=== PATIENT | female | born 1940 | race Caucasian/White ===

== ENCOUNTER 2017-05-21 05:12 | Inpatient (IN) | payer OTHER ==
[2017-04-19 13:52] VITALS: BMI 41.0
--- NOTE | 2017-04-19 14:27 | PAT Medication Instructions ---
Service Date Apr 19, 2017. Current Home Medication List Aspirin (Aspirin Ec), 81 MG PO QAM Glimepiride (Glimepiride), 2 TAB PO QDB Hydrochlorothiazide (Hctz), 1 TAB PO DAILY PRN for fluid n legs Lisinopril (Zestril), 10 MG PO QAM Metformin Hcl (Glucophage), 1,000 MG PO BID Naproxen (Aleve), 220 MG PO DAILY PRN for Pain Medication Instructions For Your Scheduled Surgery - Check with surgeon for instructions: Naproxen (Aleve), 220 MG PO DAILY PRN for Pain - Hold the following medications 48 hours prior to surgery: Metformin Hcl (Glucophage), 1,000 MG PO BID - Hold the following medications the morning of surgery: Hydrochlorothiazide (Hctz), 1 TAB PO DAILY PRN for fluid n legs Lisinopril (Zestril), 10 MG PO QAM Glimepiride (Glimepiride), 2 TAB PO QDB - Take the following medications the morning of surgery with a sip of water: Aspirin (Aspirin Ec), 81 MG PO QAM - Take the following medications as scheduled the night before surgery: Hydrochlorothiazide (Hctz), 1 TAB PO DAILY PRN for fluid n legs (if needed) If you have any questions please call us at [phone] or [phone] or [phone]
[2017-04-19 14:56] LABS: BASO % 0.4 %; BASO ABS # 0.02 K/uL (0-0.2); COMPLETE YES; EOS % 3.3 %; HEMATOCRIT 37.4 % (37-47); IG% 0.2 %; LYMPH ABS # 1.52 K/uL (1.2-3.4); MEAN CORPUSCULAR HEMOGLOBIN 30.7 pg (25-34); MEAN CORPUSCULAR HGB CONC 33.7 g/dl (32-36); MONO % 12.5 %; NEUT % 55.6 %; PLATELET COUNT 172 K/uL (130-400); RED BLOOD COUNT 4.11 M/uL (4.2-5.4); WHITE BLOOD COUNT 5.43 K/uL (4.8-10.8)
[2017-04-19 15:03] LABS: URINE APPEARANCE CLOUDY (CLEAR); URINE BILIRUBIN NEG (NEG); URINE COLOR YELLOW; URINE EPITHELIAL CELL AUTO >30 /lpf (0-5); URINE NITRITE POS (NEG); URINE PH 5.5 (4.5-7.5); URINE SPECIFIC GRAVITY 1.016 (1.000-1.030); UROBILINOGEN NEG (NEG); ZZUR CULT IF INDIC CLEAN CATCH YES
[2017-04-19 15:04] LABS: PROTHROMBIN TIME (PATIENT) 10.9 SECONDS (9.0-12.0)
[2017-04-19 15:12] LABS: MANUAL MICROSCOPIC REQUIRED? NO; REVIEW REQ? NO
[2017-04-19 16:07] LABS: BUN/CREATININE RATIO 15.6 (10-20); CALCIUM 9.3 mg/dl (8.5-10.1); CREATININE 0.93 mg/dl (0.60-1.20); POTASSIUM 4.3 mmol/L (3.5-5.1)
--- NOTE | 2017-04-19 17:46 | DIAGNOSTIC IMAGING REPORT ---
CHEST 2 VIEWS ROUTINE CLINICAL HISTORY: 76 years-old Female presenting with PAT. TECHNIQUE: PA and lateral views of the chest were obtained. COMPARISON: None. FINDINGS: Atherosclerosis of aortic arch. Cardiac silhouette normal in size. Lungs and pleural spaces clear. Osseous structures normal. Hyperdense material partially visualized in the abdomen, possibly ingested material. IMPRESSION: 1. No acute cardiopulmonary disease. Electronically signed by: Marty Juárez M.D. 04/19/2017 5:45 PM Dictated Date/Time: 04/19/2017 5:44 PM
[2017-04-20 08:10] LABS: ESTIMATED AVERAGE GLUCOSE 166 mg/dl; HA1C FLAG Normal (Normal)
--- NOTE | 2017-05-20 08:59 | HISTORY & PHYSICAL EXAMINATION ---
DATE OF ADMISSION: 05/21/2017 CHIEF COMPLAINT: Left knee pain. HISTORY OF PRESENT ILLNESS: The patient is a 76-year-old female who presents to the office with left knee pain. She states that the symptoms have been chronic and nontraumatic in nature. They occur constantly and she describes the pain as aching, sharp and throbbing. He has tried cortisone injections, nonsteroidal anti-inflammatories and physical therapy with no relief. She would like to proceed with a left total knee arthroplasty. PAST MEDICAL HISTORY: Significant for hypertension, hypercholesterolemia, eno-jywcprt-mvlautblb diabetes mellitus and osteoarthritis. PAST SURGICAL HISTORY: Right carpal tunnel release, hysterectomy, and tonsillectomy. SOCIAL HISTORY: She denies alcohol. She denies smoking or tobacco use. She denies IV or illegal drug use. She lives in a 1-story house and she is currently retired. FAMILY HISTORY: Mom and brother have a history of heart disease. ALLERGIES: STATINS, SHE GETS MUSCLE ACHES AND HIVES. MEDICATIONS: Metformin 1000 mg 1 tab twice a day, lisinopril 10 mg 1 tablet daily, glimepiride 4 mg 2 tablets with breakfast. REVIEW OF SYSTEMS: She denies headaches, fevers, chills, double vision, blurry vision, sore throat, cough, chest pain, nausea, vomiting, diarrhea, constipation, numbness, tingling, tired urinary difficulties, thoughts to harm herself or harm others or depression. She is positive for joint pain and joint stiffness of the left knee. OBJECTIVE: GENERAL APPEARANCE: The patient is a 76-year-old female sitting in no acute distress. She is well dressed, well nourished. She is awake, alert, oriented x3. VITAL SIGNS: She is 4 feet 11 inches tall, 194 pounds, blood pressure 120/69. HEENT: Normocephalic, atraumatic. Extraocular movements are intact. PERRLA. Mucosa was moist. No septal deviation. NECK: Supple with no lymphadenopathy, no JVD, no thyromegaly. HEART: Systolic murmur is appreciated in the aortic position. LUNGS: Clear to auscultation. No wheezing or rhonchi. ABDOMEN: Soft, nontender, nondistended. Normal bowel sounds, no hepatosplenomegaly. EXTREMITIES: Paying particular attention to the left lower extremity, she is able to actively extend to 0 degrees and flex to 90 degrees of the left knee joint. Her ligaments are intact. She has anterior medial joint pain. NEUROLOGIC: Cranial nerves II-XII were intact. Pulses were compared bilaterally and were equal. IMPRESSION: Primary osteoarthritis of the left knee. PLAN: The patient is scheduled for a left total knee arthroplasty. She has failed cortisone injections, nonsteroidal anti-inflammatories and physical therapy. This affects her activities of daily living and she would like to proceed with a left total knee arthroplasty. Risks and benefits to surgery were discussed that included but not limited to infection, DVT, pain, stiffness, need for revision surgeries, damage to blood vessels, damage to nerves, PE, and anesthesia risks were all discussed with the patient and she wishes to proceed. All questions were answered to her satisfaction. DVT prophylaxis will be aspirin 81 mg b.i.d. Discharge, she would like to go home with home health. MARILUZ
[~2017-05-21] VITALS: Ht 147.3 cm; Wt 89.0 kg
[2017-05-21] VITALS (10 sets, daily range): BP systolic 90–108; BP diastolic 51–68; PULSE 57–79; TEMP 36.4–36.6; O2SAT 92–97; Ht 147.3 cm; Wt 89.0 kg
[~2017-05-21 05:12] MED LIST: ASPI81TA28 PO; GLIM4TAB2 PO; HYDR25TA4 PO; LISI-461 PO; METF-384 PO; NAPR1TAB9 PO
[2017-05-21] MEDS ORDERED: CeleBREX 200 MG CAP PO SCH (06:00)
[2017-05-21] MEDS ORDERED: GABAPENTIN 300 MG CAP PO SCH (06:00)
[2017-05-21] MEDS: TRANEXAMIC ACID INJ 1,000 MG in SODIUM CHLORIDE 0.9% 100ML 100 ML IV SCH ×2 (06:00→06:30)
[2017-05-21] MEDS ORDERED: OXYCODONE HCL 10 MG TABCR (OXYCONTIN) PO SCH (06:00)
[2017-05-21] MEDS ORDERED: CEFAZOLIN 2000 MG/60 ML D5W IV SCH (06:00)
[2017-05-21] MEDS ORDERED: LACTATED RINGER'S 1000ML IV SCH (06:00)
[2017-05-21] MEDS ORDERED: CEFAZOLIN 2000 MG/60 ML D5W 60 ML IV SCH (06:00)
[2017-05-21] MEDS ORDERED: LACTATED RINGER'S 1000ML 1,000 ML IV SCH (06:00)
[2017-05-21] MEDS ORDERED: DEXAMETHASONE 4 MG TAB PO SCH (06:00)
[2017-05-21] MEDS ORDERED: ACETAMINOPHEN 500 MG TAB PO SCH (06:00)
[2017-05-21] MEDS ORDERED: LACTATED RINGER'S 1000ML 500 ML IV ONE (06:00)
[2017-05-21] MEDS ORDERED: ROPIVACAINE 5MG/ML 30 ML 150 MG, BUPIVACAINE/EPINEPHR 0.5% MPF 30 ML, KETOROLAC TROMETH... INFIL SCH ×7 (06:00)
[2017-05-21] MEDS ORDERED: METOCLOPRAMIDE HCL 10 MG TAB PO SCH (06:00)
[2017-05-21] MEDS ORDERED: FAMOTIDINE 20 MG TAB PO SCH (06:00)
[2017-05-21] MEDS ORDERED: BUPIVACAINE 0.5 % 5 MG/1 ML PF 10ML VIAL ONE (06:24)
[2017-05-21] MEDS ORDERED: BUPIVACAINE 0.25% 30 ML VIAL ONE (06:24)
[2017-05-21] MEDS ORDERED: ORTHO JOINT ANESTHETIC ONE (06:30)
[2017-05-21] MEDS ORDERED: BACITRACIN 50000 UNIT VIAL ONE (06:30)
[2017-05-21] MEDS ORDERED: POVIDONE-IODINE OP SOLN 30 ML BTL ONE (06:30)
[2017-05-21] MEDS ORDERED: MIDAZOLAM HCL 1 MG/ML 2ML VIAL ONE (06:48)
--- NOTE | 2017-05-21 06:57 | History & Physical Bridge Note ---
H&P Re-Evaluation Bridge Note: I have examined the patient, reviewed the History & Physical and in the interval since the performance of the History & Physical I have noted the following changes of clinical significance: No changes noted
[2017-05-21] MEDS ORDERED: CEFAZOLIN IV 2,000 MG/60 ML D5W IV ONE (06:58)
[2017-05-21] MEDS ORDERED: ACETAMINOPHEN 500 MG TAB PO ONE (06:58)
[2017-05-21] MEDS ORDERED: CeleBREX 200 MG CAP ONE (06:58)
[2017-05-21] MEDS ORDERED: DEXAMETHASONE 4 MG TAB ONE (06:59)
[2017-05-21] MEDS ORDERED: OXYCODONE HCL 10 MG TABCR (OXYCONTIN) PO ONE (06:59)
[2017-05-21] MEDS ORDERED: METOCLOPRAMIDE HCL 10 MG TAB PO ONE (07:00)
[2017-05-21] MEDS ORDERED: GABAPENTIN 300 MG CAP PO ONE (07:00)
[2017-05-21] MEDS ORDERED: FAMOTIDINE 20 MG TAB ONE (07:00)
[2017-05-21] MEDS ORDERED: SODIUM CHLORIDE 0.9% INJ 10 ML VIAL ONE ×2 (07:37→07:48)
[2017-05-21] MEDS ORDERED: LIDOCAINE HCL 2% 2 ML VIAL (20MG/ML) ONE (07:37)
[2017-05-21] MEDS ORDERED: PROPOFOL IV EMULSION 10 MG/ML 20 ML VIAL IV ONE ×2 (07:37→08:24)
[2017-05-21] MEDS ORDERED: CEFAZOLIN SOD 1 GM VIAL ONE (07:37)
[2017-05-21] MEDS ORDERED: KETAMINE HCL INJ 50 MG/ML 10 ML VIAL ONE (07:46)
[2017-05-21] MEDS ORDERED: PHENYLEPHRINE 100MCG/ML 5ML SYR ONE ×2 (07:48→08:41)
[2017-05-21] MEDS ORDERED: GLYCOPYRROLATE INJ 0.2 MG/ML VIAL ONE (07:49)
[2017-05-21] MEDS ORDERED: ATROPINE SULFATE 0.1 MG/ML 5ML SYR IV PRN (08:45)
[2017-05-21] MEDS ORDERED: PHENYLEPHRINE 100MCG/ML 5ML SYR IV PRN (08:45)
[2017-05-21] MEDS ORDERED: ONDANSETRON INJ 2 MG/ML 2 ML VIAL IV PRN ×2 (08:45→09:30)
[2017-05-21] MEDS ORDERED: KETOROLAC TROMETHAMINE 15 MG/ML VIAL IV. PRN (08:45)
[2017-05-21] MEDS ORDERED: EpHEDrine SULFATE INJ 50 MG/ML AMP IV PRN (08:45)
[2017-05-21] MEDS ORDERED: HYDROmorphone INJ 1 MG/ML SYR IV PRN (08:45)
[2017-05-21] MEDS ORDERED: HYDROCHLOROTHIAZIDE 25 MG TAB PO PRN (09:30)
[2017-05-21] MEDS ORDERED: SOD PHOSPHATE/SOD BIPHOSPHATE ENEMA 132 ML BTL PR PRN (09:30)
[2017-05-21] MEDS ORDERED: BISACODYL 10 MG SUPP PR PRN (09:30)
[2017-05-21] MEDS ORDERED: ZOLPIDEM TARTRATE 5 MG TAB PO PRN (09:30)
[2017-05-21] MEDS ORDERED: MoRPHine SULFATE 2 MG/ML CARP IV PRN (09:30)
[2017-05-21] MEDS ORDERED: ALUMINUM/MAGNESIUM/SIMETH (MAALOX MAX) 30 ML UDC PO PRN (09:30)
[2017-05-21] MEDS ORDERED: MAGNESIUM HYDROXIDE SUSP 30 ML UDC PO PRN (09:30)
--- NOTE | 2017-05-21 10:46 | DIAGNOSTIC IMAGING REPORT ---
LEFT KNEE 2 VIEWS History: Left total knee arthroplasty. Degenerative arthritis. Postop. FINDINGS: The patient is status post a left total knee arthroplasty. The hardware is intact. No fracture or dislocation. Skin irena and surgical drains are in place. IMPRESSION: Left total knee arthroplasty. No evidence for hardware complication. Electronically signed by: Madhav Michael M.D. 05/21/2017 10:45 AM Dictated Date/Time: 05/21/2017 10:44 AM
--- NOTE | 2017-05-21 10:51 | [facility] Operative Report ---
Operative Report Operative Date May 21, 2017. Pre-Operative Diagnosis Primary osteoarthritis of the left knee Post-Operative Diagnosis Primary osteoarthritis of the left knee Procedure(s) Performed Left Total Knee Arthroplasty, Cemented Surgeon Dr. Marty Pina Assembly Lead Person Surgeon(s) Julius Piña PA-C Estimated Blood Loss 20ml Findings As above Specimens A: Left knee bone and tissue Drains 2 Hemovac Anesthesia spinal Complication(s) None Disposition Recovery Room / PACU Indications 76-year-old female with long-standing degenerative joint disease left knee. She 's fill conservative measures clean injection anti-inflammatories and rehabilitation. She is hdxe-ro-[id number] medial compartment. She wishes to proceed with left total knee arthroplasty. Description of Procedure Risks benefits and alternatives of surgery including but not limited to infection, DVT, pain, stiffness, need for surgery, damage to blood vessels, damage to nerves or risks of anesthesia were discussed with the patient and they wished to proceed. The patient was identified and the laterality was confirmed and marked. They received a preoperative antibiotic as well as a spinal anesthetic and an abductor canal block. A well-padded tourniquet was applied and then the limb was prepped and draped in standard manner with ChloraPrep. The limb was exsanguinated and the tourniquet was inflated. I made a standard anterior incision. I sharply incised the skin then utilized Bovie electrocautery as well as the aqua mantis to achieve hemostasis. I made a medial parapatellar arthrotomy immobilized the patella laterally. I then excised the anterior horns of the medial and lateral meniscus as well as the infrapatellar fat pad. I elevated a portion of the MCL off of the tibia. I then pinned into place a patient-matched distal femoral cutting guide and made my distal femoral resection. I then pinned into place the 5 in 1 femoral cutting guide. I made my anterior, posterior and chamfer cuts. I then excised the cruciates and the remaining portions of the menisci. I then pinned into place a patient- matched tibial cutting guide and made my tibial resection. I then pinned into place the tibial plate a utilizing alignment remedios to confirm rotation. I then cut for the post. Utilizing a lamina harness worker and I then removed posterior osteophytes off the femur. I then placed a trial femur into position and cut for the trochlear component. I then sequentially trialed to size the polyethylene until there was good soft tissue balancing and range of motion. I then prepared the patella with a freehand cut utilizing sagittal saw. I sized and drilled for the patella. There was good tracking to the patella no lateral release was needed. All the trial components were removed. The deep tissues were anesthetized with an ortho mix solution. Then with Simplex HV with gentamicin cement, I cemented my definitive components. Definitive components, [employer] 2: Femur 3 Tibia 2 Poly 10 Patella 29 oval A betadine soak was performed. A deep drain was placed. The arthrotomy was closed with interrupted #1 Vicryl suture subcutaneous tissue was closed with interrupted 2-0 Vicryl suture. The skin was closed with with irena. A Silverlon was placed. Sterile dressings were applied. All needle and sponge counts were correct at the end of the procedure patient was transferred to the PACU in stable condition without apparent complication. The PA-C was necessary for assistance with procedure for assistance in positioning, prepping, draping, retraction and closure. I attest to the content of the Intraoperative Record and any orders documented therein. Any exceptions are noted below.
--- NOTE | 2017-05-21 11:16 | Anesthesiology Progress Note ---
Anesthesia Post Op Note Date & Time May 21, 2017 at 11:16 Vital Signs Pain Intensity: 0.0 Vital Signs Past 12 Hours Date Time Temp Pulse Resp B/P (MAP) Pulse Ox O2 Delivery O2 Flow Rate FiO2 05/21/17 11:02 95 Nasal Cannula 2.0 05/21/17 10:30 36.4 69 16 95/60 (72) 95 Nasal Cannula 2.0 05/21/17 10:30 95 Nasal Cannula 2.0 05/21/17 10:20 36.3 73 16 99/55 94 Nasal Cannula 2 05/21/17 10:10 36.3 20 93/60 94 Nasal Cannula 2 05/21/17 09:57 80 17 05/21/17 09:57 80 17 95 05/21/17 09:56 102/54 05/21/17 09:52 71 15 05/21/17 09:52 70 15 97 05/21/17 09:51 76 14 05/21/17 09:51 78 14 96/56 94 05/21/17 09:46 81 18 05/21/17 09:46 79 18 98/61 90 05/21/17 09:41 82 24 05/21/17 09:41 81 24 104/58 90 05/21/17 09:36 79 22 90/44 92 05/21/17 09:36 80 22 05/21/17 09:32 94/54 05/21/17 09:31 82 16 05/21/17 09:31 36.0 82 20 94/54 (65) 96 Room Air 05/21/17 09:31 82 16 96 05/21/17 05:41 36.5 77 18 108/68 94 Room Air Notes Mental Status: alert / awake / arousable, participated in evaluation Pt Amnestic to Procedure: Yes Nausea / Vomiting: adequately controlled Pain: adequately controlled Airway Patency, RR, SpO2: stable & adequate BP & HR: stable & adequate Hydration State: stable & adequate Anesthetic Complications: no major complications apparent
[2017-05-21] MEDS ORDERED: D5W AND 1/2NSS + 20MEQ KCL 1,000 ML IV SCH (11:45)
[2017-05-21] MEDS ORDERED: INFLUENZA ADMINISTRATION CHARGE ONE (12:15)
[2017-05-21] MEDS ORDERED: INFLUENZA VACCINE HIGH DOSE 65+ 0.5 ML SYR IM. ONE (12:15)
[2017-05-21] MEDS: FERROUS GLUCONATE 324 MG TAB PO SCH ×2 (12:48→19:35)
[2017-05-21] MEDS: ACETAMINOPHEN 500 MG TAB PO SCH ×2 (13:15→21:43)
[2017-05-21] MEDS ORDERED: PHARMACY GLYCEMIC MGMT CONSULT SCH (13:17)
--- NOTE | 2017-05-21 13:47 | Pharmacy Progress Note ---
Glycemic Control Intl Consult Date of Service May 21, 2017. Scope Glycemic Pharmacist consulted by Roge Dean on 05/21/17 for glycemic control and to write orders per [facility] inpatient glycemic control protocol Objective Weight (Kilograms): 89.000 Accuchecks BSG (last 24hrs): Test 05/21/17 05:41 05/21/17 09:38 05/21/17 12:13 Bedside Glucose 147 mg/dl (70-90) 142 mg/dl (70-90) 227 mg/dl (70-90) Recent Pertinent Medications Outpatient Anti-diabetic Regimen: * Glimepiride 8mg PO daily * Metformin 1g PO BID with meals * A1c = 7.4 % 04/19/17 Risk Factors for Insulin Resistance: * Steroids: Dexamethasone 8mg PO x1 today preop * Infection: Ancef pre and postop * IVF: Ancef mixed in dextrose * Recent Surgery: S/p TKA * Diet: Type 2 DM Assessment & Plan ASSESSMENT: * 76 year old female type 2 diabetic, A1c 7.4% . Pt received dose of dexamethasone po pre op, causing hyperglycemia. * Pt is maintained on oral antidiabetic agents as an outpatient * Oral agents are not recommended for inpatient use d/t drug interactions, changing PO intake, and difficulty titrating for acute hyper/hypoglycemia. ADA recommends re-initiating outpatient oral agents 1-2 days prior to discharge if/ when appropriate if they were held on admission. * Will hold oral agents for today and utilize SQ basal bolus insulin regimen which is the recommended regimen for inpatient glycemic control. * Will initiate weight based insulin dosing with a one time dose of Lantus and stress of 3 now * May give additional Lantus dose tomorrow morning based on BSG trends * Start CF and CR with stress of 3, and discontinue CR once orals start tomorrow * ADA & AACE recommend a goal blood sugar range 140-180 mg/dl for the majority of critically ill & non-critically ill patients. However, more stringent targets may be selected in individual cases. Will utilize more stringent goal of 110-140mg/dl based on patient age & comorbidities. Additionally, tighter glycemic control is warranted to facilitate wound/infection healing. PLAN FOR INPATIENT GLYCEMIC CONTROL: * Holding outpatient oral diabetes medications * Resume tomorrow morning (POD#1) * Basal insulin with LANTUS 44 units SQ x 1 dose now * Correctional Insulin with NOVOLOG per scale ACHS or Q6hrs while NPO and at 0000 and 0400 overnight * Goal Range: Low 110 mg/dL - High 140 mg/dL * Correction Factor: 20 mg/dL/unit * Nutritional / Prandial insulin per carb ratio of 1 unit per 6 grams CHO consumed * Please note that the plan above was derived based on current level of insulin resistance and hospital stress. These recommendations are appropriate for inpatient admission only. Plan of care upon discharge will need to be reassessed to avoid potential outpatient hypo/hyperglycemia. Thank you.
[2017-05-21] MEDS ORDERED: LANTUS PER UNIT CHARGE SQ ONE (14:00)
[2017-05-21] MEDS: SODIUM CHLOR 0.45% + 20MEQ KCL 1,000 ML IV SCH ×2 (14:44→23:58)
[2017-05-21] MEDS: INSULIN ASPART 100 UNITS/ML 3 ML PEN SC SCH ×3 (14:45→21:47)
[2017-05-21] MEDS: CEFAZOLIN IV 2,000 MG in DEXTROSE 5% 50ML 50 ML IV SCH (15:31)
[2017-05-21] MEDS: ASPIRIN 81 MG ECTAB PO SCH (21:42)
[2017-05-21] MEDS: SENNA 8.6 MG TAB PO SCH (21:42)
[2017-05-21] MEDS: CeleBREX 200 MG CAP PO SCH (21:42)
[2017-05-21] MEDS: DOCUSATE SODIUM 100 MG CAP PO SCH (21:42)
[2017-05-22] MEDS: INSULIN ASPART 100 UNITS/ML 3 ML PEN SC SCH ×6 (00:06→20:49)
[2017-05-22] MEDS: CEFAZOLIN IV 2,000 MG in DEXTROSE 5% 50ML 50 ML IV SCH (00:08)
[2017-05-22 04:04] VITALS: BP 100/63; PULSE 63; TEMP 36.5; O2SAT 96
[2017-05-22] MEDS: ACETAMINOPHEN 500 MG TAB PO SCH ×3 (05:54→20:45)
[2017-05-22 06:57] LABS: HEMATOCRIT 32.9 % (37-47); MEAN CELL VOLUME 89.4 fL (80-100); MEAN CORPUSCULAR HGB CONC 34.7 g/dl (32-36); MEAN PLATELET VOLUME 10.3 fL (7.4-10.4); PLATELET COUNT 137 K/uL (130-400); RED BLOOD COUNT 3.68 M/uL (4.2-5.4); WHITE BLOOD COUNT 10.39 K/uL (4.8-10.8)
[2017-05-22 07:10] LABS: INR 1.1 (0.9-1.1); PROTHROMBIN TIME (PATIENT) 11.7 SECONDS (9.0-12.0)
[2017-05-22 07:39] LABS: BUN/CREATININE RATIO 22.7 (10-20); CALCIUM 8.9 mg/dl (8.5-10.1); CREATININE 0.96 mg/dl (0.60-1.20); POTASSIUM 4.1 mmol/L (3.5-5.1)
[2017-05-22 07:45] VITALS: BP 123/64; PULSE 74; TEMP 36.3; O2SAT 96
--- NOTE | 2017-05-22 08:24 | Orthopedic Progress Note ---
Orthopedic Progress Note Date of Service May 22, 2017. Subjective Post OP Day: 1 Reports: feeling well, Denies: chest pain, SOB, nausea / vomiting, light headedness, calf pain Objective calves soft nontender, N/V intact, dressing C/D/I, A&O x3, toes mobile, hemovac drainage (60/100cc) Date Time Temp Pulse Resp B/P (MAP) Pulse Ox O2 Delivery O2 Flow Rate FiO2 05/22/17 07:45 36.3 74 16 123/64 (83) 96 Room Air 05/22/17 07:20 Room Air 05/22/17 04:04 36.5 63 16 100/63 (75) 96 Room Air 05/22/17 00:10 Room Air 05/21/17 23:21 36.4 58 16 103/63 (76) 95 Room Air 05/21/17 19:16 36.4 57 17 90/53 (65) 92 Room Air 05/21/17 15:30 93 Room Air 05/21/17 15:16 36.4 62 16 92/55 (67) 95 Nasal Cannula 2.0 05/21/17 13:30 36.6 61 17 91/58 (69) 97 Nasal Cannula 2.0 05/21/17 12:30 36.4 76 16 93/51 (65) 97 Nasal Cannula 2.0 05/21/17 11:32 61 16 101/66 (78) 97 Nasal Cannula 2.0 05/21/17 11:02 95 Nasal Cannula 2.0 05/21/17 11:00 79 16 97/60 (72) 95 Nasal Cannula 2.0 05/21/17 10:30 36.4 69 16 95/60 (72) 95 Nasal Cannula 2.0 05/21/17 10:30 95 Nasal Cannula 2.0 05/21/17 10:20 36.3 73 16 99/55 94 Nasal Cannula 2 05/21/17 10:10 36.3 20 93/60 94 Nasal Cannula 2 05/21/17 09:57 80 17 05/21/17 09:57 80 17 95 05/21/17 09:56 102/54 05/21/17 09:52 71 15 05/21/17 09:52 70 15 97 05/21/17 09:51 76 14 05/21/17 09:51 78 14 96/56 94 05/21/17 09:46 81 18 05/21/17 09:46 79 18 98/61 90 05/21/17 09:41 82 24 05/21/17 09:41 81 24 104/58 90 05/21/17 09:36 79 22 90/44 92 05/21/17 09:36 80 22 05/21/17 09:32 94/54 05/21/17 09:31 82 16 05/21/17 09:31 36.0 82 20 94/54 (65) 96 Room Air 05/21/17 09:31 82 16 96 Laboratory Results 24 Hours: Test 05/22/17 06:29 Hematocrit 32.9 % Hemoglobin 11.4 g/dL Prothromb Time International Ratio 1.1 Prothrombin Time 11.7 SECONDS Assessment & Plan Assessment: POD#1 SP LEFT TKA Plan: PT/PT DVT PROPH- ASA 81MG PAIN MANAGEMENT- TYLENOL, CELEBREX, ANNETTE DC PLANNING- PATIENT DEBATING BETWEEN HOME PT AND [facility]. WILL SEE HOW SHE DOES TODAY AND HOPEFULLY DECIDE. COULD POTENTIALLY BE DISCHARGED LATER TODAY.
--- NOTE | 2017-05-22 08:28 | Discharge Instructions ---
Discharge Instructions Date of Service May 22, 2017. Admission Reason for Admission: Osteoarthritis Left Knee Discharge Discharge Diagnosis / Problem: SP LEFT TKA Discharge Goals Goal(s): Decrease discomfort, Improve function, Increase independence Activity Recommendations Activity Limitations: per Instructions/Follow-up section . Instructions / Follow-Up Instructions / Follow-Up ACTIVITY RECOMMENDATIONS: SELF CARE INSTRUCTIONS AFTER TOTAL KNEE REPLACEMENT A. You may need to continue a physical therapy program after discharge from the hospital. There are several options available to you. Your doctor will assist you in selecting the best one for you. 1. An out-patient facility 2 to 3 times a week for therapy or home therapy. 2. Continue working on all exercises taught to you in the hospital. Your goals should be to increase bending of your knee to 90 degrees and beyond and to fully straighten your knee. B. You may progress at your own pace from walking with a walker or crutches to a cane; then to no assistive devices. C. Make walking a part of your daily routine. Be up as much as comfortable with rest periods throughout the day. Rest with leg elevation is very important. Use the ice wrap frequently for the first 3-4 weeks. D. There are no restrictions on activities. You may ride in a car, shop, participate in banbury machine operator and all social activities. E. Wear the long elastic stockings (DANISH hose) 20 hours a day for 2 weeks after surgery. They can be removed several times a day for laundering and for a bath. F. You may shower, no tub baths until cleared by your doctor. SPECIAL CARE INSTRUCTIONS: VERY IMPORTANT TO READ AND REVIEW A. There are a few signs you need to watch for after you are home. Call [facility] if you notice any of the followin. Increased severe knee pain. Some pain is expected especially when you exercise. 2. Increased swelling in your leg or knee; pain or swelling of the calf muscle in either lower leg. 3. Any fluid drainage from the incision. 4. Shortness of breath or chest pain. B. Please call [facility] at if you have any concerns or questions about your operation or recovery. The doctor or his nurse will return your call promptly. C. You must take antibiotics before dental work, bladder, bowel or other surgery. Your doctor will provide you with a permanent care to carry describing this precaution. IMPORTANT: * REMEMBER TO TAKE ASPIRIN, 81 MG, TWICE DAILY FOR 4 WEEKS UNLESS OTHERWISE DIRECTED. THIS IS YOUR BLOOD THINNER. * HIGH RISK PATIENTS MAY BE PRESCRIBED A STRONGER BLOOD THINNER. THIS WILL BE PROVIDED AT DISCHARGE. * CALL IF INCREASED PAIN, REDNESS, DRAINAGE OR FEVER GREATER THAT 101. * WEAR DANISH HOSE 20 HOURS PER DAY FOR 2 WEEKS. * YOU MAY HAVE A LARGE BAND-AID LIKE DRESSING (SILVERON). THIS WILL REMAIN ON YOUR INCISION FOR 7 DAYS, THEN CAN BE REMOVED. IF INCISION IS LEAKING THROUGH DRESSING, CALL THE OFFICE . FOLLOW UP VISIT: If appointment is not already scheduled: Please call [facility] to make a follow-up appointment for 2 weeks after your surgery at . Current Hospital Diet Patient's current hospital diet: Diabetes Type 2 Diet Discharge Diet Recommended Diet: Regular Diet Procedures Procedures Performed: Left Total Knee Arthroplasty, Cemented Pending Studies Studies pending at discharge: no Laboratory Results Hemoglobin A1c Test 04/19/17 14:36 Range/Units Estimated Average Glucose 166 mg/dl Hemoglobin A1c 7.4 H 4.5-5.6 % Medical Emergencies . Who to Call and When: Medical Emergencies: If at any time you feel your situation is an emergency, please call [phone] immediately. . Non-Emergent Contact Non-Emergency issues call your: Surgeon . "Provider Documentation" section prepared by Libra Gaines. . VTE Core Measure Inpt VTE Proph given/why not?: Other Anticoagulation, T.E.D. Stockings, SCD's [place] Drug Monitoring Program Search Results: patient reviewed within database, no issues identified
[2017-05-22] MEDS ORDERED: CLB200 PO (08:30)
[2017-05-22] MEDS ORDERED: ASPI81TA28 PO (08:30)
[2017-05-22] MEDS ORDERED: SNK PO (08:30)
[2017-05-22] MEDS ORDERED: ONDA8TAB6 PO (08:30)
[2017-05-22] MEDS ORDERED: ACET-24 PO (08:30)
[2017-05-22] MEDS ORDERED: RXC5 PO (08:30)
[2017-05-22] MEDS ORDERED: GLIMEPIRIDE 2 MG TAB PO SCH (08:30)
--- NOTE | 2017-05-22 08:30 | Clinical Documentation Query ---
CLINICAL DOCUMENTATION QUERY QUERY 1 OF 2 The patient is a 76-year-old female who presents to the office with left knee pain. In your clinical opinion is this patient being managed for: ( ) Hypo-osmolality and hyponatremia ( ) Not Agree ( ) Other explanation of clinical findings (Please Explain) ( ) Unable to determine (Please Define) ( ) Need to Discuss The medical record reflects the following clinical findings, treatment, and risk factors. Clinical Indicators: Na 140 trending down to 134 mmol/L, Treatment: IV NSS hydration, I&O Risk Factors: S/P surgical intervention, EBL/Hemovac = 180 ml QUERY 2 OF 2 A 76-year-old female who presents to the office with left knee pain. The documented BMI is 41. Morbid obesity is defined by the National [place] of Health as having a BMI >40 or, being 100 pounds or more above ideal body weight or, having a BMI >35 with one or more co-morbid conditions In your clinical opinion is this patient being managed for: ( ) Obesity ( ) Not Agree Please clarify and document your clinical opinion in the progress notes and discharge summary. Terms such as "probable", "suspected", "likely", "questionable", "possible", or "still to be ruled out" are acceptable. IF IN AGREEMENT, YOU MUST DOCUMENT ABOVE DIAGNOSTIC STATEMENT IN DAILY PROGRESS NOTES AND DISCHARGE SUMMARY. This document is not part of the patient's record. Thank You, Piper Canales RN [phone]
[2017-05-22] MEDS: PANTOprazole SOD 40 MG TAB PO SCH (08:47)
[2017-05-22] MEDS: FERROUS GLUCONATE 324 MG TAB PO SCH ×3 (08:47→18:25)
[2017-05-22] MEDS: METFORMIN HCL 500 MG TAB PO SCH ×2 (08:47→18:25)
[2017-05-22] MEDS: DOCUSATE SODIUM 100 MG CAP PO SCH ×2 (08:47→20:44)
[2017-05-22] MEDS: LISINOPRIL 10 MG TAB PO SCH (08:47)
[2017-05-22] MEDS: ASPIRIN 81 MG ECTAB PO SCH ×2 (08:47→20:44)
[2017-05-22] MEDS: MULTIVITAMIN TAB PO SCH (08:47)
[2017-05-22] MEDS: SODIUM CHLOR 0.45% + 20MEQ KCL 1,000 ML IV SCH ×2 (08:48→19:24)
[2017-05-22] MEDS: CeleBREX 200 MG CAP PO SCH ×2 (08:48→20:46)
[2017-05-22] MEDS: GLIMEPIRIDE 2 MG TAB PO SCH (08:48)
[2017-05-22] MEDS ORDERED: NURSING VERBAL MED ORDER ONE (10:15)
--- NOTE | 2017-05-22 10:21 | Clinical Documentation Query ---
CLINICAL DOCUMENTATION QUERY QUERY 1 OF 2 The patient is a 76-year-old female who presents to the office with left knee pain. In your clinical opinion is this patient being managed for: (x ) Hypo-osmolality and hyponatremia ( ) Not Agree ( ) Other explanation of clinical findings (Please Explain) ( ) Unable to determine (Please Define) ( ) Need to Discuss The medical record reflects the following clinical findings, treatment, and risk factors. Clinical Indicators: Na 140 trending down to 134 mmol/L, Treatment: IV NSS hydration, I&O Risk Factors: S/P surgical intervention, EBL/Hemovac = 180 ml QUERY 2 OF 2 A 76-year-old female who presents to the office with left knee pain. The documented BMI is 41. Morbid obesity is defined by the National [place] of Health as having a BMI >40 or, being 100 pounds or more above ideal body weight or, having a BMI >35 with one or more co-morbid conditions In your clinical opinion is this patient being managed for: ( x ) Obesity ( ) Not Agree Please clarify and document your clinical opinion in the progress notes and discharge summary. Terms such as "probable", "suspected", "likely", "questionable", "possible", or "still to be ruled out" are acceptable. IF IN AGREEMENT, YOU MUST DOCUMENT ABOVE DIAGNOSTIC STATEMENT IN DAILY PROGRESS NOTES AND DISCHARGE SUMMARY. This document is not part of the patient's record. Thank You, Piper Canales RN [phone]
[2017-05-22 11:08] VITALS: BP 112/63; PULSE 74; TEMP 36.4; O2SAT 96
[2017-05-22 15:30] VITALS: O2SAT 100
[2017-05-22 16:09] VITALS: BP 104/64; PULSE 68; TEMP 36.5; O2SAT 96
[2017-05-22] MEDS: SENNA 8.6 MG TAB PO SCH (20:44)
[2017-05-22 23:04] VITALS: BP 118/69; PULSE 70; TEMP 36.3; O2SAT 95
[2017-05-23] MEDS: OXYCODONE HCL IR 5 MG TAB (IMMEDIATE RELEASE) PO PRN ×3 (00:04→16:22)
[2017-05-23] MEDS: SODIUM CHLOR 0.45% + 20MEQ KCL 1,000 ML IV SCH (03:10)
[2017-05-23] MEDS: ACETAMINOPHEN 500 MG TAB PO SCH ×2 (05:25→14:07)
[2017-05-23 07:19] VITALS: BP 104/64; PULSE 68; TEMP 36.4; O2SAT 95
--- NOTE | 2017-05-23 07:58 | Orthopedic Progress Note ---
Orthopedic Progress Note Date of Service May 23, 2017. Subjective Post OP Day: 2 Reports: feeling well, Denies: chest pain, SOB, nausea / vomiting, light headedness, calf pain Objective calves soft nontender, N/V intact, dressing C/D/I (silverlon), A&O x3, toes mobile Date Time Temp Pulse Resp B/P (MAP) Pulse Ox O2 Delivery O2 Flow Rate FiO2 05/23/17 07:19 36.4 68 16 104/64 (77) 95 Room Air 05/23/17 00:10 Room Air 05/22/17 23:04 36.3 70 16 118/69 (85) 95 Room Air 05/22/17 16:09 36.5 68 17 104/64 (77) 96 Room Air 05/22/17 15:30 100 Room Air 05/22/17 11:08 36.4 74 16 112/63 (79) 96 Room Air 05/22/17 09:27 36.3 74 16 96 Room Air Assessment & Plan Assessment: POD#2 SP LEFT TKA Plan: PT/PT DVT PROPH- ASA 81MG PAIN MANAGEMENT- TYLENOL, CELEBREX, ANNETTE DC PLANNING- GOING HOME WITH [employer]. DC LATER TODAY
[2017-05-23] MEDS: INSULIN ASPART 100 UNITS/ML 3 ML PEN SC SCH ×2 (08:00→12:28)
[2017-05-23] MEDS: DOCUSATE SODIUM 100 MG CAP PO SCH (08:54)
[2017-05-23] MEDS: CeleBREX 200 MG CAP PO SCH (08:55)
[2017-05-23] MEDS: ASPIRIN 81 MG ECTAB PO SCH (08:55)
[2017-05-23] MEDS: MULTIVITAMIN TAB PO SCH (08:55)
[2017-05-23] MEDS: METFORMIN HCL 500 MG TAB PO SCH (08:56)
[2017-05-23] MEDS: FERROUS GLUCONATE 324 MG TAB PO SCH ×2 (08:56→12:21)
[2017-05-23] MEDS: PANTOprazole SOD 40 MG TAB PO SCH (08:56)
[2017-05-23] MEDS: GLIMEPIRIDE 2 MG TAB PO SCH (08:56)
[2017-05-23] MEDS: LISINOPRIL 10 MG TAB PO SCH (08:57)
[2017-05-23 09:01] VITALS: BP 141/78
--- NOTE | 2017-05-27 09:09 | Discharge Summary ---
Orthopedic Discharge Summary Admission Date/Reason May 21, 2017 at 06:55 Osteoarthritis Left Knee. Discharge Date/Disposition May 23, 2017 Home with services Diagnosis Principal Diagnosis: S/P left TKA Medication Reconciliation as per discharge instructions Admission Physical Exam As per Admitting History & Physical. Hospital Course POD #1 patient was feel well and pain was well controlled. Her dressing was clean, dry and intact. She was participating in PT. It was unclear what her discharge status was at that point in time. It was between a snf facility or home with home health. POD #2 patient was feeling well and pain was well controlled. Dressing was clean, dry and intact. She would like to be discharged home with home health. She was discharged later that day. Discharge Instructions Please refer to the electronic Patient Visit Report (Discharge Instructions) for additional information.
== END 2017-05-23 17:00 | disposition home health service (06) | DRG 470 ==
LOC: C.ACU 05:12 → C.3E 06:55 → ENRESERV 10:08
PROVIDERS: ADMIT Orthopaedic Surgery; ATTEND Orthopaedic Surgery
PROC: 0SRD0J9 Replacement of Left Knee Joint with Synthetic Substitute, Cemented, Open Approach (ICD-10-PCS; principal; 2017-05-21 07:00)
DX: M17.12 Unilateral primary osteoarthritis, left knee (principal); I10 Essential (primary) hypertension; E78.00 Pure hypercholesterolemia, unspecified; E11.9 Type 2 diabetes mellitus without complications; Z82.49 Family history of ischemic heart disease and other diseases of the circulatory system

== ENCOUNTER → 2017-08-14 | Outpatient (CLI) | payer OTHER ==
[~2017-08-14] MED LIST changes: +ACET-24 PO; +CLB200 PO; -NAPR1TAB9 PO; +ONDA8TAB6 PO; +RXC5 PO; +SNK PO
[2017-08-14 18:20] LABS: BASO % 0.6 %; BASO ABS # 0.03 K/uL (0-0.2); COMPLETE YES; EOS % 3.7 %; HEMATOCRIT 38.2 % (37-47); IG% 0.2 %; LYMPH % 29.9 %; LYMPH ABS # 1.54 K/uL (1.2-3.4); MEAN CELL VOLUME 91.6 fL (80-100); MEAN CORPUSCULAR HEMOGLOBIN 30.7 pg (25-34); MEAN CORPUSCULAR HGB CONC 33.5 g/dl (32-36); MEAN PLATELET VOLUME 10.3 fL (7.4-10.4); MONO % 13.2 %; NEUT % 52.4 %; PLATELET COUNT 193 K/uL (130-400); RED BLOOD COUNT 4.17 M/uL (4.2-5.4); WHITE BLOOD COUNT 5.15 K/uL (4.8-10.8)
== END | disposition home or self-care (01) ==
LOC: C.LABMFLN 13:38
PROVIDERS: ATTEND Orthopaedic Surgery
DX: Z96.652 Presence of left artificial knee joint (principal)

== ENCOUNTER → 2017-09-25 | Outpatient (CLI) | payer OTHER | END | disposition home or self-care (01) | LOC: C.LABMFLN 11:43 | PROVIDERS: ATTEND Orthopaedic Surgery | DX: Z96.652 Presence of left artificial knee joint (principal) ==

== ENCOUNTER 2017-12-20 05:08 | Inpatient (IN) | payer OTHER ==
[2017-11-22 09:55] VITALS: BMI 35.0
--- NOTE | 2017-11-22 10:29 | PAT Medication Instructions ---
Service Date Nov 22, 2017. Current Home Medication List Acetaminophen (Tylenol Arthritis Ext Rel), 1,300 MG PO PRN Aspirin (Aspirin Ec), 81 MG PO QAM Glimepiride (Glimepiride), 8 MG PO QAM Hydrochlorothiazide (Hctz), 1 TAB PO DAILY PRN for fluid n legs Lisinopril (Zestril), 10 MG PO QAM Metformin Hcl (Glucophage), 1,000 MG PO BID [Caclium D ], 1 TAB PO QAM Medication Instructions For Your Scheduled Surgery - Hold the following medications the morning of surgery: Glimepiride (Glimepiride), 8 MG PO QAM Hydrochlorothiazide (Hctz), 1 TAB PO DAILY PRN for fluid n legs Lisinopril (Zestril), 10 MG PO QAM Metformin Hcl (Glucophage), 1,000 MG PO BID [Caclium D ], 1 TAB PO QAM - Take the following medications the morning of surgery with a sip of water: Acetaminophen (Tylenol Arthritis Ext Rel), 1,300 MG PO PRN (if needed, can be taken up to four hours before surgery) Aspirin (Aspirin Ec), 81 MG PO QAM - Take the following medications as scheduled the night before surgery: Acetaminophen (Tylenol Arthritis Ext Rel), 1,300 MG PO PRN (if needed) Metformin Hcl (Glucophage), 1,000 MG PO BID If you have any questions please call us at [phone] or [phone] or [phone]
[2017-11-22 12:01] LABS: BASO % 0.6 %; BASO ABS # 0.03 K/uL (0-0.2); EOS % 3.7 %; EOS ABS # 0.18 K/uL (0-0.5); HEMATOCRIT 40.2 % (37-47); HEMOGLOBIN 13.4 g/dL (12.0-16.0); IG# 0.01 K/uL (0.00-0.02); LYMPH % 36.5 %; MEAN CELL VOLUME 89.7 fL (80-100); MEAN CORPUSCULAR HEMOGLOBIN 29.9 pg (25-34); MEAN CORPUSCULAR HGB CONC 33.3 g/dl (32-36); MEAN PLATELET VOLUME 9.9 fL (7.4-10.4); MONO ABS # 0.59 K/uL (0.11-0.59); NEUT ABS # 2.32 K/uL (1.4-6.5); PLATELET COUNT 193 K/uL (130-400); RED CELL DISTRIBUTION WIDTH CV 13.4 % (11.5-14.5); RED CELL DISTRIBUTION WIDTH SD 44.1 fL (36.4-46.3); WHITE BLOOD COUNT 4.93 K/uL (4.8-10.8)
[2017-11-22 12:10] LABS: ALBUMIN 3.6 gm/dl (3.4-5.0); CALCIUM 9.5 mg/dl (8.5-10.1); CREATININE 0.72 mg/dl (0.60-1.20); PTT PATIENT 25.9 SECONDS (21.0-31.0)
[2017-11-22 12:30] LABS: HEMOGLOBIN A1C 6.3 % (4.5-5.6)
--- NOTE | 2017-11-27 12:57 | HISTORY & PHYSICAL EXAMINATION ---
DATE OF ADMISSION: 12/20/2017 CHIEF COMPLAINT: Left knee pain. HISTORY OF PRESENT ILLNESS: The patient is a 77-year-old female who presented with left knee pain. She previously had a total knee arthroplasty that had a collapse on the medial side. She describes the pain as aching, sharp and throbbing. She would like to proceed with a revision of her left total knee arthroplasty. PAST MEDICAL HISTORY: Significant for hypertension, hypercholesterolemia and non-insulin dependent diabetes mellitus and osteoarthritis. PAST SURGICAL HISTORY: Significant for right carpal tunnel release, hysterectomy, tonsillectomy, and left total knee. SOCIAL HISTORY: She denies alcohol. Denies smoking or tobacco use. Denies IV or illegal drug use. She lives in a [address] house. She is currently retired. FAMILY HISTORY: Mom and brother have a history of heart disease. ALLERGIES: STATINS OF WHICH SHE GETS MUSCLE ACHES AND HIVES. MEDICATIONS: Metformin 1000 mg 1 tab twice daily, lisinopril 10 mg 1 tablet daily, glyburide 4 mg 2 tablets with breakfast. REVIEW OF SYSTEMS: She denies headaches, fevers, chills, double vision, blurry vision, sore throat, cough, chest pain, nausea, vomiting, diarrhea, numbness, tingling, thoughts to harm herself or harm others, urinary difficulties or depression. She is positive for joint pain and joint stiffness of the left knee. OBJECTIVE: GENERAL APPEARANCE: The patient is a 77-year-old female sitting in no acute distress. She is well-dressed, well-nourished. She is awake, alert and oriented x3. VITAL SIGNS: She is 4 feet 11 inches tall, 172 pounds. Blood pressure is 132/72. HEENT: Normocephalic, atraumatic. Extraocular movements are intact. Mucosa was moist. No septal deviation. NECK: Supple, no lymphadenopathy, no JVD, no thyromegaly. HEART: Regular rate and rhythm. No murmurs or gallops. LUNGS: Clear to auscultation. No wheezing or rhonchi. ABDOMEN: Soft, nontender, nondistended. Normal bowel sounds, no hepatosplenomegaly. EXTREMITIES: Paying particular attention to the left knee. She is able to actively extend to 0 degrees and flex to 90 degrees. She has a surgical scar over the anterior aspect of her knee. Her ligaments were intact. She has medial joint line tenderness. NEUROLOGIC: Cranial nerves II-XII are intact. Pulses were compared bilaterally and were equal. IMPRESSION: Failure of left total knee arthroplasty. PLAN: The patient is scheduled for a left revision total knee arthroplasty. Risks and benefits to surgery were discussed with the patient and included but not limited to infection, DVT, pain, stiffness, need for revision surgeries, damage to blood vessels, damage to nerves, PE, and anesthesia risks were all discussed with the patient and she wishes to proceed. All questions were answered to her satisfaction. DVT prophylaxis will be aspirin 81 mg b.i.d. On discharge, she would like to go home with home health. MARILUZ
[2017-12-20] VITALS (9 sets, daily range): BP systolic 94–136; BP diastolic 53–79; PULSE 70–85; TEMP 36.5–36.7; O2SAT 93–96; Ht 149.9 cm; Wt 78.0 kg
[~2017-12-20] VITALS: Ht 149.9 cm; Wt 78.0 kg
[~2017-12-20 05:08] MED LIST changes: -ACET-24 PO; +ACET1TAB84 PO; -CLB200 PO; -ONDA8TAB6 PO; -RXC5 PO; -SNK PO; +[UNRECOGNIZED DRUG - OTHER] PO
[2017-12-20] MEDS ORDERED: LACTATED RINGER'S 1000ML 1,000 ML IV SCH (06:00)
[2017-12-20] MEDS ORDERED: ROPIVACAINE 5MG/ML 30 ML 150 MG, BUPIVACAINE 0.5% MPF INJ 30 ML, EpINEphrine HCL INJ 0.... INFIL SCH ×8 (06:00)
[2017-12-20] MEDS ORDERED: DEXAMETHASONE 4 MG TAB PO SCH (06:00)
[2017-12-20] MEDS ORDERED: OXYCODONE HCL 10 MG TABCR (OXYCONTIN) PO SCH (06:00)
[2017-12-20] MEDS ORDERED: ACETAMINOPHEN 500 MG TAB PO SCH (06:00)
[2017-12-20] MEDS ORDERED: CeleBREX 200 MG CAP PO SCH (06:00)
[2017-12-20] MEDS ORDERED: FAMOTIDINE 20 MG TAB PO SCH (06:00)
[2017-12-20] MEDS ORDERED: METOCLOPRAMIDE HCL 10 MG TAB PO SCH (06:00)
[2017-12-20] MEDS ORDERED: LACTATED RINGER'S 1000ML 500 ML IV SCH (06:00)
[2017-12-20] MEDS ORDERED: CEFAZOLIN 2000MG IV PUSH 15 ML IV SCH (06:00)
[2017-12-20] MEDS ORDERED: GABAPENTIN 300 MG CAP PO SCH (06:00)
[2017-12-20] MEDS ORDERED: BUPIVACAINE 0.5 % 5 MG/1 ML PF 10ML VIAL ONE (06:33)
[2017-12-20] MEDS ORDERED: ROPIVACAINE 0.5% 5 MG/ML 30 ML VIAL ONE (06:33)
[2017-12-20] MEDS ORDERED: MIDAZOLAM HCL 1 MG/ML 2ML VIAL ONE ×3 (06:41→06:45)
[2017-12-20] MEDS ORDERED: BACITRACIN 50000 UNIT VIAL ONE (06:44)
[2017-12-20] MEDS ORDERED: POVIDONE-IODINE OP SOLN 30 ML BTL ONE (06:44)
[2017-12-20] MEDS ORDERED: ORTHO JOINT ANESTHETIC ONE (06:44)
[2017-12-20] MEDS: TRANEXAMIC ACID INJ 1,000 MG x 2 Bags IV SCH ×4 (06:50→11:15)
[2017-12-20] MEDS ORDERED: PROPOFOL IV EMULSION 10 MG/ML 20 ML VIAL IV ONE (08:25)
[2017-12-20] MEDS ORDERED: PHENYLEPHRINE 100MCG/ML 5ML SYR ONE (08:25)
[2017-12-20] MEDS ORDERED: LIDOCAINE HCL 2% 2 ML VIAL (20MG/ML) ONE (08:25)
[2017-12-20] MEDS ORDERED: LABETALOL HCL IV 5 MG/ML 20ML IV PRN (08:45)
[2017-12-20] MEDS ORDERED: HYDROmorphone INJ 0.5 MG/0.5 ML SYR IV PRN (08:45)
[2017-12-20] MEDS ORDERED: ATROPINE SULFATE 0.1 MG/ML 5ML SYR IV PRN (08:45)
[2017-12-20] MEDS ORDERED: EpHEDrine SULFATE INJ 50 MG/ML AMP IV PRN (08:45)
[2017-12-20] MEDS ORDERED: FENTANYL CITRATE INJ 50 MCG/1 ML 2 ML VIAL IV PRN (08:45)
[2017-12-20] MEDS ORDERED: ONDANSETRON INJ 2 MG/ML 2 ML VIAL IV PRN ×2 (08:45→09:30)
[2017-12-20] MEDS ORDERED: MEPERIDINE HCL 25 MG/ML CARP IV PRN (08:45)
[2017-12-20] MEDS ORDERED: PHENYLEPHRINE HCL INJ 10 MG/ML VIAL ONE (09:18)
--- NOTE | 2017-12-20 09:22 | [facility] Operative Report ---
Operative Report Operative Date Dec 20, 2017. Pre-Operative Diagnosis Failure of left total knee arthroplasty Post-Operative Diagnosis Same as pre-operative Procedure(s) Performed Left Total Knee Revision Arthroplasty Surgeon Dr. Marty Pina; Dr. Albert Carey Tax Accounting Manager Surgeon(s) Roge Dean PA-C Estimated Blood Loss 20mL Findings Collapsed femoral component that had fallen into valgus, specimen sent for frozen section showed no acute inflammation and fewer than 5 cells per high- powered field Specimens Microbiology: 1. Left knee joint fluid for gram stain, culture and sensitivity, anaerobic and aerobic bacteria Frozen Section: 1. Left Femoral Bone Interface; white cells per high power field. Permanent: A. Explanted left knee hardware Drains 2 Hemovac Anesthesia Type MAC Spinal Regional Complication(s) none Disposition Recovery Room / PACU Indications The patient is a 77-year-old female who previously undergone a left total knee arthroplasty. She initially done well. Subsequent follow-up visit she had significant increase in her pain. X-rays demonstrated collapse of the femoral component into the distal femur with significant valgus angulation. She denies any trauma or falls. She continued to have pain, instability and significant valgus deformity. Infectious workup was negative. Her CBC was normal, sed rate was normal, CRP was normal. I performed an aspiration as well and this was negative on culture. She wishes to proceed with revision of her femoral component. The tibial component appeared stable on x-ray. Description of Procedure Risks benefits and alternatives of surgery including but not limited to infection, DVT, pain, stiffness, need for surgery, damage to blood vessels, damage to nerves or risks of anesthesia were discussed with the patient and they wished to proceed. The patient was identified and the laterality was confirmed and marked. They received a preoperative antibiotic as well as a spinal anesthetic and an abductor canal block. A well-padded tourniquet was applied and then the limb was prepped and draped in standard manner with ChloraPrep. The limb was exsanguinated and the tourniquet was inflated. I made a standard anterior incision. I sharply incised the skin then utilized Bovie electrocautery as well as the aqua mantis to achieve hemostasis. I made a medial parapatellar arthrotomy and mobilized the patella laterally. I performed a complete synovectomy clearing scar tissue from the medial as well as lateral gutters. The femoral component had collapsed into the distal femur both on the medial side as well as the lateral side. He was more collapsed onto the lateral side the component was in valgus. We used a combination of flexible as well as Artisan chisel osteotomes to loosen the bone/cement mantle interface. Once we had broken the cement mantle circumferentially around the femoral component we used a osteotome and bone tamp to loosen the femur. We had minimal bone loss with the removal of the femoral component. Cultures of the fluid were sent. I also sent some soft tissue from the for analysis of the bone cement interface. This came back as no acute inflammation and less than 5 cells per high-power field. I sequentially reamed the femoral canal up to a size 16. We confirmed that a size 3 Legion component would be appropriate size. I then determined by offset to be a 4 mm offset at the 630 position. I then placed the distal femoral resection guide on to the alignment remedios. She had collapsed with medially as well as laterally so we made a cleanup cut at 5 mm on the medial side and 15 mm on the lateral side. The distal femoral cutting guide was then removed and I placed the chamfer cutting guide into position and set it appropriate offset. I made a cleanup cut anteriorly. We needed a medial wedge of 5 mm as well as a medial wedge of 5 mm posteriorly. I then reamed for the boss as well as for the offset. I then inspected the tibia. The tibia was well fixed in good position. There is no evidence of loosening. Tapping on the tibial component and no evidence of loosening of the tibial side. I then placed the trial femur into position and then sequentially trialed my polys. We had range of motion good but she was still a little bit loose on the medial side with a 13 mm with the high flex poly. We then converted to a constrained liner and this gave us good stability medially and laterally. She good range of motion. The patella was stable. There was some slight lateral tracking to the patella and a lateral release was performed. All the trial components were removed. The deep tissues were anesthetized with an ortho mix solution. Then with Simplex HV with gentamicin cement, I cemented my definitive components. Definitive components, [employer] Legion: Size 3 femur with a 16 x 160 mm stem with a 4 mm offset set at the 630 position. There was a 5 x 5 L medial wedge with a 15 x 5 L lateral wedge The poly was a 13 mm constrained Her tibial component and patellar component were retained. A betadine soak was performed. A deep drain was placed. The arthrotomy was closed with interrupted #1 Vicryl suture subcutaneous tissue was closed with interrupted 2-0 Vicryl suture. The skin was closed with with irena. A Prevena wound VAC was placed. Sterile dressings were applied. All needle and sponge counts were correct at the end of the procedure patient was transferred to the PACU in stable condition without apparent complication. The PA-C was necessary for assistance with procedure for assistance in positioning, prepping, draping, retraction and closure. I attest to the content of the Intraoperative Record and any orders documented therein. Any exceptions are noted below.
[2017-12-20] MEDS ORDERED: ALUMINUM/MAGNESIUM/SIMETH (MAALOX MAX) 30 ML UDC PO PRN (09:30)
[2017-12-20] MEDS ORDERED: MoRPHine SULFATE 2 MG/ML CARP IV PRN (09:30)
[2017-12-20] MEDS ORDERED: METOCLOPRAMIDE HCL INJ 5 MG/ML 2 ML VIAL IV PRN (09:30)
[2017-12-20] MEDS ORDERED: HYDROCHLOROTHIAZIDE 25 MG TAB PO PRN (09:30)
[2017-12-20] MEDS ORDERED: MAGNESIUM HYDROXIDE SUSP 30 ML UDC PO PRN (09:30)
[2017-12-20] MEDS ORDERED: ACETAMINOPHEN 1300 MG PO SCH (09:30)
[2017-12-20] MEDS ORDERED: KETOROLAC TROMETHAMINE 15 MG/ML VIAL IV. PRN (09:30)
[2017-12-20] MEDS ORDERED: TRAMADOL HCL 50 MG TAB PO PRN (09:45)
--- NOTE | 2017-12-20 10:08 | DIAGNOSTIC IMAGING REPORT ---
L KNEE 1 OR 2 VIEWS ROUTINE HISTORY: 77 years-old Female AP/LATERAL IN PACU LEFT KNEE status post left knee total joint arthroplasty. History of osteoarthritis. COMPARISON: Left knee radiographs 05/21/2017 TECHNIQUE: 2 views of the left knee FINDINGS: Postoperative changes from left knee total joint arthroplasty revision with placement of a long femoral stem component. Prior patellar resurfacing. Anterior midline skin irena are noted with surgical drain in place. Expected postsurgical soft tissue swelling and deep tissue air with peripheral vascular disease. Satisfactory alignment without periprosthetic fracture or retained foreign body identified. IMPRESSION: Left knee total joint arthroplasty revision with satisfactory alignment. The above report was generated using voice recognition software. It may contain grammatical, syntax or spelling errors. Electronically signed by: Cash Fitzgerald M.D. 12/20/2017 10:07 AM Dictated Date/Time: 12/20/2017 10:05 AM
[2017-12-20] MEDS ORDERED: PHARMACY GLYCEMIC MGMT CONSULT SCH (10:27)
[2017-12-20] MEDS ORDERED: DEXTROSE 50% 50 ML SYR IV PRN (10:30)
[2017-12-20] MEDS ORDERED: GLUCAGON FOR INJ 1 MG VIAL SQ PRN (10:30)
[2017-12-20] MEDS ORDERED: GLUCOSE 40% GEL 15 GM TUBE PO PRN (10:30)
[2017-12-20] MEDS ORDERED: GLUCOSE 10 TABS/TUBE PO PRN (10:30)
--- NOTE | 2017-12-20 10:38 | Pharmacy Progress Note ---
Glycemic Control Intl Consult Date of Service Dec 20, 2017. Scope Glycemic Pharmacist consulted by Roge Dean PA-C on 12/20/17 for glycemic control and to write orders per [facility] inpatient glycemic control protocol Objective Weight (Kilograms): 78 Accuchecks BSG (last 24hrs): Test 12/20/17 05:49 12/20/17 09:52 Bedside Glucose 121 mg/dl (70-90) 161 mg/dl (70-90) Recent Pertinent Medications Outpatient Anti-diabetic Regimen: * Metformin 1g PO BID * Glyburide 8mg PO QAM * A1c = 6.3 % 11/22/17 Risk Factors for Insulin Resistance: * Steroids: Dexamethasone 8mg PO x 1 preop * Infection: Ancef pre and post op * Recent Surgery: s/p L TKA revision * Diet: Type 2 DM Assessment & Plan ASSESSMENT: * 77 year old female type 2 diabetic s/p L TKA revision * Known to pharmacy glycemic service from TKA in April 2017 * Pt is maintained on oral antidiabetic agents as an outpatient * Oral agents are not recommended for inpatient use d/t drug interactions, changing PO intake, and difficulty titrating for acute hyper/hypoglycemia. ADA recommends re-initiating outpatient oral agents 1-2 days prior to discharge if/ when appropriate if they were held on admission. * Will hold oral agents for admission and utilize SQ basal bolus insulin regimen which is the recommended regimen for inpatient glycemic control. * Blood sugars at goal at this time, will give one time dose of NPH to cover PO Dexamethasone, and start with tight CF and CR, then loosen as steroids wear off * Accuchecks over night tonight * ADA & AACE recommend a goal blood sugar range 140-180 mg/dl for the majority of critically ill & non-critically ill patients. However, more stringent targets may be selected in individual cases. Will utilize more stringent goal of 110-140mg/dl based on patient age & comorbidities. Additionally, tighter glycemic control is warranted to facilitate wound/infection healing. PLAN FOR INPATIENT GLYCEMIC CONTROL: * Holding outpatient oral diabetes medications * Basal insulin with NPH - 40 units SQ x 1 dose now at 1045 * Correctional Insulin with NOVOLOG per scale ACHS or Q6hrs while NPO and at 0000 and 0400 * Goal Range: Low 110 mg/dL - High 140 mg/dL * Correction Factor: 12 mg/dL/unit * Nutritional / Prandial insulin per carb ratio of 1 unit per 4 grams CHO consumed * Please note that the plan above was derived based on current level of insulin resistance and hospital stress. These recommendations are appropriate for inpatient admission only. Plan of care upon discharge will need to be reassessed to avoid potential outpatient hypo/hyperglycemia. Thank you.
[2017-12-20] MEDS ORDERED: NovoLIN-N (NPH) PER UNIT CHARGE SQ ONE (10:45)
--- NOTE | 2017-12-20 10:45 | Anesthesiology Progress Note ---
Anesthesia Post Op Note Date & Time Dec 20, 2017 at 10:45 Vital Signs Pain Intensity: 0 Vital Signs Past 12 Hours Date Time Temp Pulse Resp B/P (MAP) Pulse Ox O2 Delivery O2 Flow Rate FiO2 12/20/17 10:12 71 20 94 12/20/17 10:12 71 20 12/20/17 10:11 91/58 12/20/17 10:07 73 18 12/20/17 10:07 74 18 95 12/20/17 10:06 106/56 12/20/17 10:02 77 94 12/20/17 10:02 77 12/20/17 10:01 102/55 12/20/17 10:00 36.7 74 17 102/55 (70) 96 Nasal Cannula 2 12/20/17 09:57 80 94 12/20/17 09:57 80 12/20/17 09:56 102/60 12/20/17 09:53 78 94 12/20/17 09:53 78 12/20/17 09:51 94/56 12/20/17 09:48 75 12/20/17 09:48 75 94 12/20/17 09:46 98/62 12/20/17 09:43 76 19 94 12/20/17 09:43 79 19 12/20/17 09:41 91/55 12/20/17 09:38 77 15 12/20/17 09:38 77 15 93 12/20/17 09:37 91/53 12/20/17 09:34 104/58 12/20/17 09:33 36.3 76 16 104/58 (63) 94 Oxymask 10 12/20/17 09:33 78 18 94 12/20/17 09:33 79 18 12/20/17 06:01 36.6 85 16 121/67 94 Room Air Notes Mental Status: alert / awake / arousable, participated in evaluation Pt Amnestic to Procedure: Yes Nausea / Vomiting: adequately controlled Pain: adequately controlled Airway Patency, RR, SpO2: stable & adequate BP & HR: stable & adequate Hydration State: stable & adequate Neuraxial Anesthesia: was administered, sensory block is resolving Anesthetic Complications: no major complications apparent
[2017-12-20] MEDS: SODIUM CHLORIDE 0.9% 1000ML 1,000 ML IV SCH ×2 (11:20→21:01)
[2017-12-20] MEDS: FERROUS GLUCONATE 324 MG TAB PO SCH ×2 (12:37→18:06)
[2017-12-20] MEDS: LISINOPRIL 10 MG TAB PO SCH (12:38)
[2017-12-20] MEDS: INSULIN ASPART 100 UNITS/ML 3 ML PEN SC SCH ×4 (12:41→23:37)
[2017-12-20] MEDS: ACETAMINOPHEN 500 MG TAB PO SCH ×2 (13:47→22:06)
[2017-12-20] MEDS: CEFAZOLIN IV 1,000 MG in SYRINGE 0 ML IV SCH ×2 (16:20→23:31)
[2017-12-20] MEDS: ASPIRIN 81 MG ECTAB PO SCH (20:56)
[2017-12-20] MEDS: DOCUSATE SODIUM 100 MG CAP PO SCH (20:57)
[2017-12-20] MEDS ORDERED: METFORMIN HCL 500 MG TAB PO SCH (21:00)
[2017-12-21] VITALS (7 sets, daily range): BP systolic 96–138; BP diastolic 50–74; PULSE 68–81; TEMP 36.5–36.9; O2SAT 94–98
[2017-12-21] MEDS: INSULIN ASPART 100 UNITS/ML 3 ML PEN SC SCH ×5 (04:00→20:48)
[2017-12-21] MEDS: SODIUM CHLORIDE 0.9% 1000ML 1,000 ML IV SCH (05:53)
[2017-12-21] MEDS: ACETAMINOPHEN 500 MG TAB PO SCH ×3 (05:53→20:49)
[2017-12-21 06:28] LABS: HEMATOCRIT 34.1 % (37-47); HEMOGLOBIN 11.7 g/dL (12.0-16.0); MEAN CELL VOLUME 89.3 fL (80-100); MEAN CORPUSCULAR HEMOGLOBIN 30.6 pg (25-34); MEAN CORPUSCULAR HGB CONC 34.3 g/dl (32-36); MEAN PLATELET VOLUME 9.6 fL (7.4-10.4); PLATELET COUNT 176 K/uL (130-400); RED CELL DISTRIBUTION WIDTH CV 13.6 % (11.5-14.5); RED CELL DISTRIBUTION WIDTH SD 44.8 fL (36.4-46.3); WHITE BLOOD COUNT 9.07 K/uL (4.8-10.8)
[2017-12-21 06:54] LABS: CALCIUM 8.8 mg/dl (8.5-10.1); CREATININE 0.97 mg/dl (0.60-1.20); POTASSIUM 4.1 mmol/L (3.5-5.1)
[2017-12-21] MEDS ORDERED: GLIMEPIRIDE 8 MG PO SCH (09:00)
[2017-12-21] MEDS ORDERED: NovoLIN-N (NPH) PER UNIT CHARGE SQ ONE (09:00)
[2017-12-21] MEDS: CALCIUM 600MG + VIT D 400 IU TAB PO SCH (09:03)
[2017-12-21] MEDS: ASPIRIN 81 MG ECTAB PO SCH ×2 (09:03→20:48)
[2017-12-21] MEDS: MULTIVITAMIN TAB PO SCH (09:03)
[2017-12-21] MEDS: LISINOPRIL 10 MG TAB PO SCH (09:03)
[2017-12-21] MEDS: FERROUS GLUCONATE 324 MG TAB PO SCH ×3 (09:03→18:06)
[2017-12-21] MEDS: DOCUSATE SODIUM 100 MG CAP PO SCH ×2 (09:04→20:48)
--- NOTE | 2017-12-21 09:35 | Orthopedic Progress Note ---
Orthopedic Progress Note Date of Service Dec 21, 2017. Subjective Post OP Day: 1 Reports: feeling well, pain controlled w PO medications, Denies: chest pain, SOB , nausea / vomiting, light headedness, calf pain Objective calves soft nontender, N/V intact, capillary refill less than 2 sec., dressing C /D/I, A&O x3, toes mobile, hemovac drainage Date Time Temp Pulse Resp B/P (MAP) Pulse Ox O2 Delivery O2 Flow Rate FiO2 12/21/17 07:35 36.5 68 17 99/57 (71) 94 Room Air 12/21/17 07:15 Room Air 12/21/17 04:10 36.6 81 18 99/50 (66) 95 Room Air 12/20/17 23:15 Room Air 12/20/17 22:55 36.5 72 16 101/53 (69) 94 Room Air 12/20/17 16:16 74 102/62 (75) 12/20/17 16:00 Room Air 12/20/17 14:58 36.7 77 16 94/55 (68) 94 Room Air 12/20/17 13:30 80 16 99/53 (68) 93 12/20/17 12:30 78 16 136/79 (98) 96 12/20/17 11:25 36.5 70 15 107/63 (78) 96 Nasal Cannula 12/20/17 11:00 75 16 114/77 (89) 96 12/20/17 10:30 96 Nasal Cannula 3.0 12/20/17 10:30 96 Nasal Cannula 3.0 12/20/17 10:30 36.6 77 16 95/61 (72) 96 Nasal Cannula 3.0 12/20/17 10:12 71 20 94 12/20/17 10:12 71 20 12/20/17 10:11 91/58 12/20/17 10:07 73 18 12/20/17 10:07 74 18 95 12/20/17 10:06 106/56 12/20/17 10:02 77 94 12/20/17 10:02 77 12/20/17 10:01 102/55 12/20/17 10:00 36.7 74 17 102/55 (70) 96 Nasal Cannula 2 12/20/17 09:57 80 94 12/20/17 09:57 80 12/20/17 09:56 102/60 12/20/17 09:53 78 94 12/20/17 09:53 78 12/20/17 09:51 94/56 12/20/17 09:48 75 12/20/17 09:48 75 94 12/20/17 09:46 98/62 12/20/17 09:43 76 19 94 12/20/17 09:43 79 19 12/20/17 09:41 91/55 12/20/17 09:38 77 15 12/20/17 09:38 77 15 93 12/20/17 09:37 91/53 12/20/17 09:34 104/58 12/20/17 09:33 36.3 76 16 104/58 (63) 94 Oxymask 10 12/20/17 09:33 78 18 94 12/20/17 09:33 79 18 Laboratory Results 24 Hours: Test 12/21/17 05:52 Hematocrit 34.1 % Hemoglobin 11.7 g/dL Assessment & Plan Assessment: Left TKA revision Plan: POD #1 Left TKA revision Waiting approval for [place], most likely saturday Continue Therapy. ASA SCD/[facility] Inhouse Planning Pain Management: PO Tylenol, Oxy IR DVT Prophylaxis: TEDs, SCDs, ASA Discharge Planning Discharge Planning: intermediate facility Therapy: Physical Therapy
--- NOTE | 2017-12-21 11:23 | Pharmacy Progress Note ---
Glycemic Control Progress Note Date of Service Dec 21, 2017. Scope Glycemic Pharmacist consulted for glycemic control to write orders per [facility] inpatient glycemic control protocol. Objective Accuchecks BSG (last 24hrs): Test 12/20/17 12:22 12/20/17 16:59 12/20/17 20:30 12/20/17 23:35 Bedside Glucose 211 mg/dl (70-90) 268 mg/dl (70-90) 211 mg/dl (70-90) 129 mg/dl (70-90) Test 12/21/17 04:07 12/21/17 05:52 12/21/17 08:19 Bedside Glucose 96 mg/dl (70-90) 94 mg/dl (70-90) Random Glucose 98 mg/dl (70-99) Recent Pertinent Medications The patient is currently receiving: * Basal insulin: NPH 40 units x1 12/20 afternoon * Correctional Insulin: Novolog Correction per scale ACHS Goal Range: Low 110 mg/dL - High 140 mg/dL Correction Factor: 12 mg/dL/unit * Prandial insulin: Per carb ratio of 1 unit per 4 grams CHO consumed * Oral Agents: On hold Outpatient Anti-Diabetic Meds Oral agents Assessment & Plan ASSESSMENT: * See progress note from 12/20 for more background info, in short: * POD 1 s/p TKA revision with dexamethasone 8 mg po x1 preop * BSG's ranging 94-268 mg/dL over 24 hours. BSG's 268 and 211 mg/dL are too high, but all BSG's since 0000 less than 130 mg/dL * Effects of dexamethasone likely persisting today but also may begin to dissipate- OK to continue NPH but will do so at significantly reduced dose * Will loosen correction factor and carb ratio significantly (of note, this will still be aggressive at weight-based severe stress estimate) * Anticipated discharge to [place] Saturday. Will resume home metformin 24 hours prior to anticipated discharge * Will eliminate CHO ratio when metformin is started PLAN FOR INPATIENT GLYCEMIC CONTROL: * Oral Agents * Metformin 1000 mg po BID (starting 12/22 AM) * Basal insulin * Decrease NPH 15 units SQ x1 this AM * Bolus insulin * NovoLog per scale ACHS or Q6hrs while NPO * Goal Range: Low 110 mg/dL - High 140 mg/dL * Loosen Correction Factor: 20 mg/dL/unit * Loosen Nutritional / Prandial insulin per carb ratio of 1 unit per 7 grams CHO consumed today, then eliminate starting 429 AM RECOMMENDATIONS FOR DISCHARGE: * No changes to outpatient regimen needed * Please note that the plan above was derived based on current level of insulin resistance and hospital stress. These recommendations are appropriate for inpatient admission only. Plan of care upon discharge will need to be reassessed to avoid potential outpatient hypo/hyperglycemia. Thank you.
[2017-12-21] MEDS: OXYCODONE HCL IR 5 MG TAB (IMMEDIATE RELEASE) PO PRN ×2 (11:49→21:28)
[2017-12-21] MEDS: CeleBREX 200 MG CAP PO SCH (21:28)
[2017-12-22] MEDS: ACETAMINOPHEN 500 MG TAB PO SCH ×3 (06:05→22:16)
[2017-12-22 06:31] VITALS: BP 116/59; PULSE 86; TEMP 36.7; O2SAT 94
[2017-12-22] MEDS: INSULIN ASPART 100 UNITS/ML 3 ML PEN SC SCH ×4 (07:24→21:00)
[2017-12-22] MEDS: FERROUS GLUCONATE 324 MG TAB PO SCH ×3 (07:30→17:55)
[2017-12-22] MEDS: MULTIVITAMIN TAB PO SCH (07:30)
[2017-12-22] MEDS: LISINOPRIL 10 MG TAB PO SCH (07:31)
[2017-12-22] MEDS: CeleBREX 200 MG CAP PO SCH ×2 (07:31→21:04)
[2017-12-22] MEDS: ASPIRIN 81 MG ECTAB PO SCH ×2 (07:32→21:03)
[2017-12-22] MEDS: DOCUSATE SODIUM 100 MG CAP PO SCH ×2 (07:32→21:02)
[2017-12-22] MEDS: CALCIUM 600MG + VIT D 400 IU TAB PO SCH (07:33)
[2017-12-22] MEDS: METFORMIN HCL 500 MG TAB PO SCH ×2 (07:33→17:55)
[2017-12-22] MEDS: OXYCODONE HCL IR 5 MG TAB (IMMEDIATE RELEASE) PO PRN ×3 (07:38→21:11)
[2017-12-22 08:56] VITALS: BP 113/68; PULSE 76; O2SAT 97
--- NOTE | 2017-12-22 09:09 | Orthopedic Progress Note ---
Orthopedic Progress Note Date of Service Dec 22, 2017. Subjective Post OP Day: 2 Reports: feeling well, pain controlled w PO medications, Denies: chest pain, SOB , nausea / vomiting, light headedness, calf pain Objective calves soft nontender, N/V intact, capillary refill less than 2 sec., dressing C /D/I (prevena), A&O x3, toes mobile Date Time Temp Pulse Resp B/P (MAP) Pulse Ox O2 Delivery O2 Flow Rate FiO2 12/22/17 08:56 76 97 12/22/17 07:40 Room Air 12/22/17 06:31 36.7 86 17 116/59 (78) 94 Room Air 12/21/17 23:30 Room Air 12/21/17 23:03 36.5 71 16 103/61 (75) 95 Room Air 12/21/17 19:40 94 Room Air 12/21/17 15:46 Room Air 12/21/17 15:04 36.9 18 104/63 (77) 94 Room Air 12/21/17 11:47 77 98 12/21/17 11:00 36.5 72 17 96/57 (70) 95 Room Air Assessment & Plan Assessment: Left TKA revision Plan: POD #2 Left TKA revision Waiting approval for [place], most likely saturday Continue Therapy. ASA SCD/[facility] Inhouse Planning Pain Management: PO Tylenol, Oxy IR DVT Prophylaxis: TEDs, SCDs, ASA Discharge Planning Discharge Planning: detention facility ([facility]) Therapy: Physical Therapy
[2017-12-22 14:48] VITALS: BP 108/66; PULSE 79; TEMP 36.6; O2SAT 97
[2017-12-22 23:20] VITALS: BP 92/56; PULSE 79; TEMP 36.6; O2SAT 95
[2017-12-23] MEDS: ACETAMINOPHEN 500 MG TAB PO SCH (06:05)
[2017-12-23 06:51] VITALS: BP 114/65; PULSE 89; TEMP 36.5; O2SAT 94
[2017-12-23] MEDS: INSULIN ASPART 100 UNITS/ML 3 ML PEN SC SCH (07:27)
[2017-12-23] MEDS: FERROUS GLUCONATE 324 MG TAB PO SCH (07:29)
[2017-12-23] MEDS: MULTIVITAMIN TAB PO SCH (07:29)
[2017-12-23] MEDS: ASPIRIN 81 MG ECTAB PO SCH (07:29)
[2017-12-23] MEDS: LISINOPRIL 10 MG TAB PO SCH (07:29)
[2017-12-23] MEDS: DOCUSATE SODIUM 100 MG CAP PO SCH (07:29)
[2017-12-23] MEDS: METFORMIN HCL 500 MG TAB PO SCH (07:30)
[2017-12-23] MEDS: CALCIUM 600MG + VIT D 400 IU TAB PO SCH (07:30)
[2017-12-23] MEDS: CeleBREX 200 MG CAP PO SCH (07:32)
--- NOTE | 2017-12-23 07:53 | Anesthesiology Progress Note ---
Anesthesia Post Op Note Date & Time Dec 23, 2017 at 07:53 Vital Signs Pain Intensity: 0.0 Vital Signs Past 12 Hours Date Time Temp Pulse Resp B/P (MAP) Pulse Ox O2 Delivery O2 Flow Rate FiO2 12/23/17 06:51 36.5 89 18 114/65 (81) 94 Room Air 12/22/17 23:30 Room Air 12/22/17 23:20 36.6 79 16 92/56 (68) 95 Room Air Notes Mental Status: alert / awake / arousable, participated in evaluation Pt Amnestic to Procedure: Yes Nausea / Vomiting: adequately controlled Pain: adequately controlled Airway Patency, RR, SpO2: stable & adequate BP & HR: stable & adequate Hydration State: stable & adequate Neuraxial Anesthesia: sensory block resolved Anesthetic Complications: no major complications apparent
[2017-12-23 08:09] VITALS: BP 114/65; PULSE 89; TEMP 36.5; O2SAT 94
--- NOTE | 2017-12-23 08:24 | Orthopedic Progress Note ---
Orthopedic Progress Note Date of Service Dec 23, 2017. Subjective Post OP Day: 3 Reports: feeling well, Denies: chest pain, SOB, nausea / vomiting, light headedness, calf pain Objective calves soft nontender, N/V intact, capillary refill less than 2 sec., dressing C /D/I (PREVENA), A&O x3, toes mobile Date Time Temp Pulse Resp B/P (MAP) Pulse Ox O2 Delivery O2 Flow Rate FiO2 12/23/17 08:09 36.5 89 18 94 Room Air 12/23/17 07:30 Room Air 12/23/17 06:51 36.5 89 18 114/65 (81) 94 Room Air 12/22/17 23:30 Room Air 12/22/17 23:20 36.6 79 16 92/56 (68) 95 Room Air 12/22/17 15:40 Room Air 12/22/17 14:48 36.6 79 16 108/66 (80) 97 Room Air 12/22/17 08:56 76 97 Assessment & Plan Assessment: Left TKA revision POD#3 Plan: POD #3 Left TKA revision Waiting approval for [facility], most likely saturday. TRANSFER TODAY IF ACCEPTED Continue Therapy. ASA SCD/[facility] Inhouse Planning Pain Management: PO Tylenol, Oxy IR DVT Prophylaxis: TEDs, SCDs, ASA Discharge Planning Discharge Planning: long-term facility ([facility]) Therapy: Physical Therapy
[2017-12-23] MEDS ORDERED: ACET-24 PO (08:26)
[2017-12-23] MEDS ORDERED: RXC5 PO (08:26)
[2017-12-23] MEDS ORDERED: ASPI81TA28 PO (08:26)
[2017-12-23] MEDS ORDERED: CLB200 PO (08:26)
[2017-12-23] MEDS ORDERED: ONDA-170 PO (08:26)
--- NOTE | 2017-12-23 08:27 | Discharge Instructions ---
Discharge Instructions Date of Service Dec 23, 2017. Admission Reason for Admission: Left Knee Complication Of Internal Orthopedic Pros Discharge Discharge Diagnosis / Problem: SP LEFT TKA REVISION Discharge Goals Goal(s): Decrease discomfort, Improve function, Increase independence Activity Recommendations Activity Level: Assistance Required Therapies: Physical Therapy, Occupational Therapy Weightbearing Status: Left weightbearing . Additional Information Patient informed of condition: Yes Advance Directives: Yes DNR: No Level of Care: Acute Rehab Communicable Disease: No Prognosis: Stable Instructions / Follow-Up Instructions / Follow-Up ACTIVITY RECOMMENDATIONS: SELF CARE INSTRUCTIONS AFTER TOTAL KNEE REPLACEMENT A. You may need to continue a physical therapy program after discharge from the hospital. There are several options available to you. Your doctor will assist you in selecting the best one for you. 1. An out-patient facility 2 to 3 times a week for therapy or home therapy. 2. Continue working on all exercises taught to you in the hospital. Your goals should be to increase bending of your knee to 90 degrees and beyond and to fully straighten your knee. B. You may progress at your own pace from walking with a walker or crutches to a cane; then to no assistive devices. C. Make walking a part of your daily routine. Be up as much as comfortable with rest periods throughout the day. Rest with leg elevation is very important. Use the ice wrap frequently for the first 3-4 weeks. D. There are no restrictions on activities. 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 E. Wear the long elastic stockings (DANISH hose) 20 hours a day for 2 weeks after surgery. They can be removed several times a day for laundering and for a bath. F. You may shower, no tub baths until cleared by your doctor. SPECIAL CARE INSTRUCTIONS: VERY IMPORTANT TO READ AND REVIEW A. There are a few signs you need to watch for after you are home. Call [facility] if you notice any of the followin. Increased severe knee pain. Some pain is expected especially when you exercise. 2. Increased swelling in your leg or knee; pain or swelling of the calf muscle in either lower leg. 3. Any fluid drainage from the incision. 4. Shortness of breath or chest pain. B. Please call [facility] at if you have any concerns or questions about your operation or recovery. The doctor or his nurse will return your call promptly. C. You must take antibiotics before dental work, bladder, bowel or other surgery. Your doctor will provide you with a permanent care to carry describing this precaution. IMPORTANT: * REMEMBER TO TAKE ASPIRIN, 81 MG, TWICE DAILY FOR 4 WEEKS UNLESS OTHERWISE DIRECTED. THIS IS YOUR BLOOD THINNER. * HIGH RISK PATIENTS MAY BE PRESCRIBED A STRONGER BLOOD THINNER. THIS WILL BE PROVIDED AT DISCHARGE. * CALL IF INCREASED PAIN, REDNESS, DRAINAGE OR FEVER GREATER THAT 101. * WEAR DANISH HOSE 20 HOURS PER DAY FOR 2 WEEKS. * Prevena- This is a large suction dressing covering your incision. This will help pull any excess drainage from the wound and allow your incision to heal properly. You may shower with this if you can keep the unit outside of the shower. If any bleeding or leakage is noted please call your doctor's office. This will remain on your incision for 7 days and then should be removed. This can be done yourself or by the home nursing staff if applicable. The entire unit is disposable once removed. Once removed, keep incision clean and dry. If redness or drainage is noted, please call your surgeon. FOLLOW UP VISIT: If appointment is not already scheduled: Please call [facility] to make a follow-up appointment for 2 weeks after your surgery at . Current Hospital Diet Patient's current hospital diet: Diabetes Type 2 Diet Discharge Diet Recommended Diet: Regular Diet Procedures Procedures Performed: Left Total Knee Revision Arthroplasty Pending Studies Studies pending at discharge: no Laboratory Results Hemoglobin A1c Test 11/22/17 09:40 Range/Units Estimated Average Glucose 134 mg/dl Hemoglobin A1c 6.3 H 4.5-5.6 % Medical Emergencies . Who to Call and When: Medical Emergencies: If at any time you feel your situation is an emergency, please call 911 immediately. . Non-Emergent Contact Non-Emergency issues call your: Surgeon . . "Provider Documentation" section prepared by Libra Gaines. . Core Measure Problem Core Measures: None
--- NOTE | 2017-12-23 14:22 | DISCHARGE SUMMARY ---
DISCHARGE DIAGNOSIS: Failure of left total knee arthroplasty. SECONDARY DIAGNOSES: Hypertension, hypercholesterolemia, bji-srecdgp-joajorlae diabetes mellitus, osteoarthritis. CONSULTS: None. COMPLICATIONS: None. PROCEDURES: Left total knee revision of arthroplasty by Dr. Pina and Dr. Carey on 12/20/2017. BRIEF HISTORY: As dictated in history and physical. HOSPITAL SUMMARY: Patient was admitted on the above noted date and had the above noted surgery performed which she tolerated well. On first postoperative day, she was feeling well and pain was controlled. She was without complaints. Calves were soft, nontender. Neurovascularly intact. Dressings clean, dry and intact. Toes were mobile. Vital signs were stable. She was afebrile and hemoglobin was 11.7. She was started on physical therapy protocol, continued on DVT prophylaxis, and pain management. Plans were for her to go to [facility] and would most likely need a 3-day stay or be approved by Saturday. By her second postoperative day, she was feeling well and pain was controlled. She had no complaints. Prevena dressing was intact. Calves were soft, nontender. Neurovascularly intact. Vital signs were stable and she was afebrile. She was progressing with her physical therapy and was continued on her protocol. The rest of her stay was essentially uneventful and by 12/23/2017 she continued remaining stable. Dressings were intact with the Prevena. Calves were soft and nontender. Vital signs were stable. She was afebrile. She was progressing with PT and was transferred to [facility] for further physical therapy and care. For further review, please see chart. LAB AND X-RAY DATA: As per chart. DISCHARGE INSTRUCTIONS: Patient was discharged to [facility] on 12/23/2017. DIET: Diabetic. ACTIVITY: PT and OT protocols. Follow TK instruction sheets and special care instructions and follow up with Dr. Pina in 2 weeks. DISCHARGE MEDICATIONS: Acetaminophen 1000 mg p.o. q. 8 hours, Celebrex 200 mg p.o. b.i.d., Zofran 8 mg p.o. q. 8 hours p.r.n., oxycodone 5-10 mg p.o. q. 4 hours p.r.n. Resume home meds as listed. After 30 days, resume once daily dosing of your aspirin and stop taking Tylenol Arthritis Extended Release.
== END 2017-12-23 11:35 | DRG 468 ==
LOC: C.ACU 05:08 → C.3E 07:00 → ENRESERV 09:59
PROVIDERS: ADMIT Orthopaedic Surgery; ATTEND Orthopaedic Surgery
PROC: 0SWU0JZ Revision of Synthetic Substitute in Left Knee Joint, Femoral Surface, Open Approach (ICD-10-PCS; principal; 2017-12-20 07:00)
DX: T84.093A Other mechanical complication of internal left knee prosthesis, initial encounter (principal); I10 Essential (primary) hypertension; E78.00 Pure hypercholesterolemia, unspecified; E11.9 Type 2 diabetes mellitus without complications; Z79.82 Long term (current) use of aspirin; Z79.84 Long term (current) use of oral hypoglycemic drugs; Z79.899 Other long term (current) drug therapy; Z96.652 Presence of left artificial knee joint; Y83.1 Surgical operation with implant of artificial internal device as the cause of abnormal reaction of the patient, or of later complication, without mention of misadventure at the time of the procedure; Y79.2 Prosthetic and other implants, materials and accessory orthopedic devices associated with adverse incidents

== ENCOUNTER 2018-10-03 11:25 | Inpatient (IN) ==
--- NOTE | 2018-09-04 13:38 | Anesthesiology Consultation ---
Date of Service September 04, 2018 Assessment & Plan (1) Encounter for pre-operative examination: Plan: - Check BSG AM DOS - Possible difficult intubation due to anatomy. Chart Review Chart Review: Acceptable Risk for Surgery and Patient seen in Pre Admission Testing Teaching & Discussion Pre-Anesthesia Teaching/Discussion Notes: Instructed NPO after midnight before surgery,except medications with 15 cc of water. Medication instructions provided according to the PAT guidelines. History Surgery Operation Date: 10/03/18 12:20 Proposed Procedures p Right Total Knee Arthroplasty - Marty Pina MD Height/Weight Height: 4 ft 11 in Weight: 84.3 kg Allergies Allergy/AdvReac Type Severity Reaction Status Date / Time Ojxjcea-Mez-Wff Reductase AdvReac Unknown achy Verified 09/01/18 13:02 Inhibitor joints, - hadd a rash with one (? specific) Medications Home Medications Medication Instructions Recorded Confirmed Last Taken Tylenol Arthritis - "Off Brand" 1 dose PO UD PRN 09/01/18 09/01/18 Unknown aspirin [Aspir-81] 81 mg PO DAILY 09/01/18 09/01/18 Unknown glimepiride 4 mg PO QAM 09/01/18 09/01/18 Unknown lisinopril 10 mg PO QAM 09/01/18 09/01/18 Unknown metformin 1,000 mg PO BID 09/01/18 09/01/18 Unknown Past Medical History Medical History Cataracts, both eyes Diabetes NIDDM History of hyperlipidemia Hypertension Obesity Osteoarthritis Past Family History Family History Father Family history of lung cancer Past Surgical History Surgical History History of arthroplasty of left knee History of colonoscopy History of hysterectomy TOTAL History of revision of total knee arthroplasty LEFT TKA REVISION= 12/20/17= SAB X 1 ATTEMPT + PNB AT [facility] History of tonsillectomy Past Anesthesia History No Hx of Anesthesia Complications and No Family Hx of Anesthesia Complications History of PONV No Motion Sickness Screening History of Motion Sickness: No Social History Smoking Status: Never smoker Do You Dip or Chew Tobacco: No Hx Alcohol Use: No Hx Substance Use: No substance use type: does not use Exercise / Class Metabolic Activity III < 4 Walking/Shop/Light housework (USES CANE PRN) Review of Systems Patient denies chest pain, shortness of breath, cough, wheezing, palpitations. Physical Exam Vital Signs VITALS BP 118/70 P 89 TEMP 97.8 SP02 95%RA RESP 18 Full neck and c-spine range of motion. Short, thick neck. Full TMJ range of motion. TMD 2.5 finger breaths Mallampati Score 4 (small oral opening) Dentition: upper partial, missing lower front tooth Lungs: clear throughout to auscultation Cardiac: regular rate and rhythm, no murmurs noted Spine: normal Carotid arteries: negative bruit Extremities: no edema Testing Electrocardiogram Date: 09/04/18 SR with first degree AVB at 85bpm. Chest X-Ray Date: 09/04/18 Findings: + NAD Calcification the thoracic aortic arch. Unchanged right hemidiaphragm elevation. Subsegmental left basilar opacities suggest atelectasis. Calcifications of the upper abdomen suggest cholelithiasis. Laboratory Results 09/04/18 13:57 09/04/18 13:57 Blood Type A Positive 09/04/18 13:57 Antibody Screen NEGATIVE 09/04/18 13:57 PT 10.7 Seconds (9.0-12.0) 09/04/18 13:57 INR 1.1 (0.9-1.1) 09/04/18 13:57 APTT 25.6 Seconds (21.0-31.0) 09/04/18 13:57 Hemoglobin A1c 6.9 % (4.5-5.6) H 09/04/18 13:57 Urine Color Yellow 09/04/18 Unknown Urine Appearance Clear (Clear) 09/04/18 Unknown Urine pH 5.0 (4.5-7.5) 09/04/18 Unknown Ur Specific [place] 1.023 (1.000-1.030) 09/04/18 Unknown Urine Protein Negative (Negative) 09/04/18 Unknown Urine Glucose (UA) 3+ (Negative) H 09/04/18 Unknown Urine Ketones Negative (Negative) 09/04/18 Unknown Urine Nitrite Negative (Negative) 09/04/18 Unknown Ur Leukocyte Esterase 1+ (Negative) H 09/04/18 Unknown Urine WBC (Auto) 1-5 /hpf (0-5) 09/04/18 Unknown Urine RBC (Auto) 0-4 /hpf (0-4) 09/04/18 Unknown U Hyaline Cast (Auto) 1-5 /lpf (0-5) 09/04/18 Unknown U Epithel Cells (Auto) >30 /lpf (0-5) H 09/04/18 Unknown Urine Bacteria (Auto) Negative (Negative) 09/04/18 Unknown
--- NOTE | 2018-09-04 13:45 | PAT Medication Instructions ---
Medication Instructions Date of Service September 04, 2018 Home Medications Tylenol Arthritis - "Off Brand" 1 dose PO UD PRN aspirin [Aspir-81] 81 mg PO DAILY glimepiride 4 mg PO QAM lisinopril 10 mg PO QAM metformin 1,000 mg PO BID DO NOT take the morning of surgery glimepiride 4 mg PO QAM lisinopril 10 mg PO QAM metformin 1,000 mg PO BID Take morning of surgery With a small sip of water, OTHERWISE NOTHING TO EAT OR DRINK AFTER MIDNIGHT: Tylenol Arthritis - "Off Brand" 1 dose PO UD PRN (okay to take up to 4 hours prior to surgery if needed) aspirin [Aspir-81] 81 mg PO DAILY Take evening before surgery Tylenol Arthritis - "Off Brand" 1 dose PO UD PRN (if needed) metformin 1,000 mg PO BID Other Notes If you have any questions please call us at [phone] or [phone] or [phone] or [phone]
[2018-09-04 14:38] LABS: Basophils # (auto) 0.04 K/uL (0-0.2); Basophils % (auto) 0.6 %; Eosinophils % (auto) 3.2 %; Hematocrit (blood only) 40.7 % (37-47); Hemoglobin 13.5 g/dL (12.0-16.0); Immature Granulocytes # (auto) 0.01 K/uL (0.00-0.02); Immature Granulocytes % (auto) 0.2 %; Lymphocytes # (auto) 2.04 K/uL (1.2-3.4); Lymphocytes % (auto) 33.1 %; Mean Corpuscular Hgb Conc 33.2 g/dL (32-36); Mean Corpuscular Volume 91.3 fL (80-100); Monocytes # (auto) 0.73 K/uL (0.11-0.59); Monocytes % (auto) 11.9 %; Neutrophils # (auto) 3.14 K/uL (1.4-6.5); Platelet Count 193 K/uL (130-400); RDW Coefficient of Variation 13.5 % (11.5-14.5); RDW Standard Deviation 44.6 fL (36.4-46.3); Red Blood Count 4.46 M/uL (4.2-5.4); White Blood Count 6.16 K/uL (4.8-10.8)
[2018-09-04 14:41] LABS: Appearance Urine Clear (Clear); Bacteria Urine Automated Negative (Negative); Bilirubin Urine Negative (Negative); Color Urine Yellow; Epithelial Cell Urine Auto >30 /lpf (0-5); Glucose Urine UA 3+ (Negative); Ketones Urine Negative (Negative); Leukocyte Esterase Urine 1+ (Negative); Nitrite Urine Negative (Negative); Protein Urine Negative (Negative); Specific Gravity Urine 1.023 (1.000-1.030); Urobilinogen Urine Negative (Negative)
[2018-09-04 14:52] LABS: INR 1.1 (0.9-1.1); Partial Thromboplastin Time 25.6 Seconds (21.0-31.0); Prothrombin Time 10.7 Seconds (9.0-12.0)
--- NOTE | 2018-09-04 15:02 | XRay Report ---
XR chest Pre-admission PA/Lat HISTORY: 77 years-old Female pat preoperative exam. No acute chest complaints COMPARISON: Chest radiograph 04/19/2017 TECHNIQUE: PA and lateral views of the chest FINDINGS: Cardiac silhouette is enlarged. Calcification the thoracic aortic arch. Unchanged right hemidiaphragm elevation. Subsegmental left basilar opacities suggest atelectasis. No pneumothorax, large pleural e ffusion or overt pulmonary edema. Degenerative changes of the shoulders and spine. Calcifications of the upper abdomen suggest cholelithiasis. IMPRESSION: 1. Cardiomegaly without acute process. 2. Suggestion of cholelithiasis. The above report was generated using voice recognition software. It may contain grammatical, syntax o r spelling errors. Electronically signed by: Cash Fitzgerald M.D. 09/04/2018 3:00 PM
[2018-09-04 15:24] LABS: Albumin Level 3.7 gm/dl (3.4-5.0); BUN Creatinine Ratio 23.2 (10-20); Calcium 10.1 mg/dl (8.5-10.1); Est GFR (African American) 90.4
[2018-09-05 06:48] LABS: Estimated Average Glucose 151 mg/dl
--- NOTE | 2018-09-10 12:58 | History & Physical Report ---
Date of Service September 10, 2018 Assessment & Plan (1) Osteoarthritis of right knee: Patient is having ongoing right knee pain that is affecting her activities of daily life. Treatment options were discussed. She has failed conservative measures and would like to proceed with surgical intervention. Risks, benefits and alternatives to surgery including but not limited to infection, DVT, pain, stiffness, need for revision surgery, damage to blood vessels, damage to nerves, PE, , were discussed with the patient and they wish to proceed. Plan will be for right total knee arthroplasty. All quesitons were answered. She will be on Aspirin 81mg BID x 30 days for DVT prophylaxis. [facility] the [facility]. She will follow up in the office post operatively. History of Present Illness Chief Complaint: Right knee pain Primary Care Provider: Ruddy Bryant Patient is a 77 year old female who presents with complaints of ongoing and worsening right knee pain. She has had previous left total knee arthroplasty and left knee revision of the femoral component. No changes in health history noted since surgery in November. She has failed conservative measures including cortisone injection, viscosupplementation, and anti-inflammatory medications. She would like to proceed with right total knee arthroplasty. Patient denies headaches, sweats, fevers, chills, double vision, blurred vision, cough, sore throat, dysphagia, chest pain, sob, wheezing, n/v/d/c, tingling, fatigue, urinary symptoms, mood disorders. ROS positive for right knee pain and stiffness. She does have hand numbness as well. Allergies Allergy/AdvReac Type Severity Reaction Status Date / Time Uflpxlq-Snz-Mqa Reductase AdvReac Unknown achy Verified 09/01/18 13:02 Inhibitor joints, - hadd a rash with one (? specific) Home Medications Home Medications Medication Instructions Recorded Confirmed Type Tylenol Arthritis - "Off Brand" 1 dose PO UD PRN 09/01/18 09/01/18 History aspirin [Aspir-81] 81 mg PO DAILY 09/01/18 09/01/18 History glimepiride 4 mg PO QAM 09/01/18 09/01/18 History lisinopril 10 mg PO QAM 09/01/18 09/01/18 History metformin 1,000 mg PO BID 09/01/18 09/01/18 History Past Med/Surg History Medical History Cataracts, both eyes Diabetes NIDDM History of hyperlipidemia Hypertension Obesity Osteoarthritis Surgical History History of arthroplasty of left knee History of colonoscopy History of hysterectomy TOTAL History of revision of total knee arthroplasty LEFT TKA REVISION= 12/20/17= SAB X 1 ATTEMPT + PNB AT [facility] History of tonsillectomy Family History Father Family history of lung cancer Social History Current Living Situation: Spouse Other Information That Helps Us Care for You: No Feels Safe at Home: Yes Smoking Status: Never smoker Do You Dip or Chew Tobacco: No Hx Alcohol Use: No Hx Substance Use: No Beliefs That Will Affect Care: None Preferred Language: [place]i Communication Ability: Effective Communication Ability Comment: HARD 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 She is tender over medial joint line. Varus alignment. Stable to valgus and varus stress. Skin: no rashes, warm and dry Neurologic: normal touch/pain/proprioception Psychiatric: A+Ox3, euthymic affect Results & Data Laboratory Results Lab Results 09/04/18 09/04/18 09/04/18 Range/Units 13:57 13:57 13:57 WBC 6.16 (4.8-10.8) K/uL RBC 4.46 (4.2-5.4) M/uL Hgb 13.5 (12.0-16.0) g/dL Hct 40.7 (37-47) % MCV 91.3 (80-100) fL MCH 30.3 (25-34) pg MCHC 33.2 (32-36) g/dL RDW Std Deviation 44.6 (36.4-46.3) fL RDW Coeff of Lei 13.5 (11.5-14.5) % Plt Count 193 (130-400) K/uL MPV 10.0 (7.4-10.4) fL Immature Gran % (Auto) 0.2 % Neut % (Auto) 51.0 % Lymph % (Auto) 33.1 % [place] % (Auto) 11.9 % Eos % (Auto) 3.2 % Baso % (Auto) 0.6 % Immature Gran # (Auto) 0.01 (0.00-0.02) K/uL Neut # (Auto) 3.14 (1.4-6.5) K/uL Lymph # (Auto) 2.04 (1.2-3.4) K/uL [place] # (Auto) 0.73 H (0.11-0.59) K/uL Eos # (Auto) 0.20 (0-0.5) K/uL Baso # (Auto) 0.04 (0-0.2) K/uL PT 10.7 (9.0-12.0) Seconds INR 1.1 (0.9-1.1) APTT 25.6 (21.0-31.0) Seconds PTT Ratio 1.0 Sodium 138 (136-145) mmol/L Potassium 4.0 (3.5-5.1) mmol/L Chloride 108 H (98-107) mmol/L Carbon Dioxide 24 (21-32) mmol/L Anion Gap 6.0 (3-11) BUN 17 (7-18) mg/dl Creatinine 0.75 (0.6-1.2) mg/dl Est Cr Clr Drug Dosing 61.0 ml/min Est GFR ( Amer) 90.4 Est GFR (Non-Af Amer) 78.0 BUN/Creatinine Ratio 23.2 H (10-20) Glucose 63 L (70-99) mg/dl Estimat Average Glucose mg/dl Hemoglobin A1c (4.5-5.6) % Calcium 10.1 (8.5-10.1) mg/dl Albumin 3.7 (3.4-5.0) gm/dl Urine Color Urine Appearance (Clear) Urine pH (4.5-7.5) Ur Specific [place] (1.000-1.030) Urine Protein (Negative) Urine Glucose (UA) (Negative) Urine Ketones (Negative) Urine Blood (Negative) Urine Nitrite (Negative) Urine Bilirubin (Negative) Urine Urobilinogen (Negative) Ur Leukocyte Esterase (Negative) Urine WBC (Auto) (0-5) /hpf Urine RBC (Auto) (0-4) /hpf U Hyaline Cast (Auto) (0-5) /lpf U Epithel Cells (Auto) (0-5) /lpf Urine Bacteria (Auto) (Negative) Blood Type Antibody Screen 09/04/18 09/04/18 09/04/18 Range/Units 13:57 13:57 Unknown WBC (4.8-10.8) K/uL RBC (4.2-5.4) M/uL Hgb (12.0-16.0) g/dL Hct (37-47) % MCV (80-100) fL MCH (25-34) pg MCHC (32-36) g/dL RDW Std Deviation (36.4-46.3) fL RDW Coeff of Lei (11.5-14.5) % Plt Count (130-400) K/uL MPV (7.4-10.4) fL Immature Gran % (Auto) % Neut % (Auto) % Lymph % (Auto) % [place] % (Auto) % Eos % (Auto) % Baso % (Auto) % Immature Gran # (Auto) (0.00-0.02) K/uL Neut # (Auto) (1.4-6.5) K/uL Lymph # (Auto) (1.2-3.4) K/uL [place] # (Auto) (0.11-0.59) K/uL Eos # (Auto) (0-0.5) K/uL Baso # (Auto) (0-0.2) K/uL PT (9.0-12.0) Seconds INR (0.9-1.1) APTT (21.0-31.0) Seconds PTT Ratio Sodium (136-145) mmol/L Potassium (3.5-5.1) mmol/L Chloride (98-107) mmol/L Carbon Dioxide (21-32) mmol/L Anion Gap (3-11) BUN (7-18) mg/dl Creatinine (0.6-1.2) mg/dl Est Cr Clr Drug Dosing ml/min Est GFR ( Amer) Est GFR (Non-Af Amer) BUN/Creatinine Ratio (10-20) Glucose (70-99) mg/dl Estimat Average Glucose 151 mg/dl Hemoglobin A1c 6.9 H (4.5-5.6) % Calcium (8.5-10.1) mg/dl Albumin (3.4-5.0) gm/dl Urine Color Yellow Urine Appearance Clear (Clear) Urine pH 5.0 (4.5-7.5) Ur Specific [place] 1.023 (1.000-1.030) Urine Protein Negative (Negative) Urine Glucose (UA) 3+ H (Negative) Urine Ketones Negative (Negative) Urine Blood Negative (Negative) Urine Nitrite Negative (Negative) Urine Bilirubin Negative (Negative) Urine Urobilinogen Negative (Negative) Ur Leukocyte Esterase 1+ H (Negative) Urine WBC (Auto) 1-5 (0-5) /hpf Urine RBC (Auto) 0-4 (0-4) /hpf U Hyaline Cast (Auto) 1-5 (0-5) /lpf U Epithel Cells (Auto) >30 H (0-5) /lpf Urine Bacteria (Auto) Negative (Negative) Blood Type A Positive Antibody Screen NEGATIVE Diagnostic Findings Right knee radiographs: Osteopenic appearnance. Owng-ve-ifio medial compartment with osteophyte formation medial femoral condyle and medial tibial plateau. Spurring and joint space narrowing patellofemoral joint.
[~2018-10-03 11:25] MED LIST changes: -ACET1TAB84 PO; +ACETAMINOPHEN 500 MG TAB PO SCH; -ASPI81TA28 PO; +BUPIVACAINE 0.5 % 5 MG/1 ML PF 10ML VIAL ONE; +CEFAZOLIN 2000MG 2,000 MG/15 ML SYR IV SCH; +CeleBREX 200 MG CAP PO SCH; +EPINEPHrine INJ 1 MG/ML AMP ONE; +FAMOTIDINE 20 MG TAB PO SCH; +GABAPENTIN 300 MG PO SCH; -GLIM4TAB2 PO; -HYDR25TA4 PO; -LISI-461 PO; -METF-384 PO; +METOCLOPRAMIDE HCL 10 MG TABLET PO SCH; +OXYCODONE HCL 10 MG TABCR (OXYCONTIN) PO SCH; +ROPIVACAINE 0.5% 5 MG/ML 30 ML VIAL ONE; +ROPIVACAINE 0.5% HCL/PF 150 MG, BUPIVACAINE 0.5% MPF 30 ML, EPINEPHrine 30MG/30ML (OR U... INFIL SCH; +TRANEXAMIC ACID 1,000 MG **IV Intra-op IV SCH; +TRANEXAMIC ACID 1,000 MG **IV Pre-op IV SCH; -[UNRECOGNIZED DRUG - OTHER] PO; +dexAMETHasone 4 MG TAB PO SCH
--- NOTE | 2018-10-03 11:59 | History & Physical Bridge Note ---
Date of Service October 03, 2018 History & Physical Bridge Note I have examined the patient, reviewed the History & Physical and in the interval since the performance of the History & Physical I have noted the following changes of clinical significance: no changes noted
[2018-10-03] MEDS ORDERED: MIDAZOLAM HCL 1 MG/ML 2ML VIAL ONE ×2 (12:10→13:13)
[2018-10-03] MEDS: LR 500ML BOLUS, THEN 15ML/HR IV SCH ×3 (12:16→20:06)
[2018-10-03] MEDS ORDERED: POVIDONE-IODINE OP SOLN 30 ML BTL ONE (12:30)
[2018-10-03] MEDS ORDERED: BACITRACIN INJ 50,000 UNIT VIAL ONE (12:30)
[2018-10-03] MEDS ORDERED: ORTHO JOINT ANESTHETIC ONE (12:30)
[2018-10-03] MEDS ORDERED: PHENYLEPHRINE 100MCG/ML 5ML SYR IV PRN (12:38)
[2018-10-03] MEDS ORDERED: ONDANSETRON INJ 2 MG/ML 2 ML VIAL IV PRN ×2 (12:38→15:22)
[2018-10-03] MEDS ORDERED: MEPERIDINE HCL 25 MG/ML CARP IV PRN (12:38)
[2018-10-03] MEDS ORDERED: HYDROmorphone INJ 1 MG/ML SYRINGE IV PRN (12:38)
[2018-10-03] MEDS ORDERED: ATROPINE SULFATE 0.1 MG/ML 10ML SYR IV PRN (12:38)
[2018-10-03] MEDS ORDERED: fentaNYL citrate 100 MCG/2 ML VIAL IV PRN (12:38)
[2018-10-03] MEDS ORDERED: ePHEDrine sulfate 50 MG/ML AMP IV PRN (12:38)
[2018-10-03] MEDS ORDERED: LABETALOL HCL IV 5 MG/ML 20ML IV PRN (12:38)
[2018-10-03] MEDS ORDERED: PHENYLEPHRINE HCL 10 MG/ML VIAL ONE (13:06)
--- NOTE | 2018-10-03 14:40 | Operative Report ---
Post Operative Report Pre & Post Diagnosis Operation Date: 10/03/18 13:10 Pre-Op Diagnosis: RIGHT KNEE OSTEOARTHRITIS with severe osteoporosis Post-Op Diagnosis: RIGHT KNEE OSTEOARTHRITIS with severe osteoporosis Procedure Operation Date: 10/03/18 13:10 Actual Procedures p Right Total Knee Arthroplasty(Right) - Marty Pina MD Surgeon Marty Pina MD Filling Winder Froylan Taylor PA-C Estimated Blood Loss 20 Findings Consistent with Post-Op Diagnosis Specimens Bone and tissue Drains 2 Hemovac Anesthesia Type Spinal MAC Complications none Disposition Accompanied Patient To Recovery: No Disposition: Recovery Room Indications The patient is a 77-year-old female long-standing arthritic change in the right knee. She is yoly-pg-sims medial compartment. She has very osteoporotic bone. She previously had a total knee performed on the contralateral side and had fairly severe subsidence of the femoral component and required revision to a stemmed component. Given his previous history we elected to proceed with stemmed components during her primary procedure for this knee. Description of Procedure Risks benefits and alternatives of surgery including but not limited to infection, DVT, pain, stiffness, need for surgery, damage to blood vessels, damage to nerves or risks of anesthesia were discussed with the patient and they wished to proceed. The patient was identified and the laterality was confirmed and marked. They received a preoperative antibiotic as well as a spinal anesthetic and an abductor canal block. A well-padded tourniquet was applied and then the limb was prepped and draped in standard manner with ChloraPrep. The limb was exsanguinated and the tourniquet was inflated. I made a standard anterior incision. I sharply incised the skin then utilized Bovie electrocautery to achieve hemostasis. I made a medial parapatellar arthrotomy and mobilized the patella laterally. I then excised the anterior horns of the medial and lateral meniscus as well as the infrapatellar fat pad. I elevated a portion of the MCL off of the tibia. I then pinned into place a patient-matched distal femoral cutting guide and made my distal femoral resection. I then reamed into the central canal and sequentially reamed up to a size 16. I then made my revision 6 degree femoral distal femoral cut. I then placed an offset onto the reamer this was a 4 mm offset. Once I was happy with the alignment of the cutting block I made my anterior posterior and chamfer cuts. I then reamed for the offset component. I then pinned into place the tibial plate a utilizing alignment remedios to confirm rotation. I then cut for the post. Utilizing a lamina hand gluer and slicer and I then removed posterior osteophytes off the femur. I then placed a trial femur into position and cut for the trochlear component. I then sequentially trialed to size the polyethylene until there was good soft tissue balancing and range of motion. I then prepared the patella with a freehand cut utilizing sagittal saw. I sized and drilled for the patella. There was good tracking to the patella no lateral release was needed. I then sequentially reamed for the tibial stem up to a size 14 mm All the trial components were removed. The deep tissues were anesthetized with an ortho mix solution. Then with Simplex HV with gentamicin cement, I cemented my definitive components. Definitive components, [employer]: Femur 3 with 4 mm offset set at 430 position with 120 mm stem with a 16 mm diameter Tibia 2 with 100 mm stem by 14 mm Poly 11 high flex Patella 29 oval A betadine soak was performed. A deep drain was placed. The arthrotomy was closed with interrupted #1 Vicryl suture subcutaneous tissue was closed with interrupted 2-0 Vicryl suture. The skin was closed with with irena. An Acticoat and Fabiola dressing were placed. Sterile dressings were applied. All needle and sponge counts were correct at the end of the procedure patient was transferred to the PACU in stable condition without apparent complication. The PA-C was necessary for assistance with procedure for assistance in positioning, prepping, draping, retraction and closure. I attest to the content of the Intraoperative Record and any orders documented therein. Any exceptions are noted below.
[2018-10-03] MEDS ORDERED: MoRPHine SULFATE 4 MG/ML 1 ML CARP\\VIAL IV PRN (15:22)
[2018-10-03] MEDS ORDERED: MAGNESIUM HYDROXIDE SUSP 30 ML UDC PO PRN (15:22)
[2018-10-03] MEDS ORDERED: BISACODYL 10 MG SUPP PR PRN (15:22)
[2018-10-03] MEDS ORDERED: NALOXONE HCL 0.4 MG/1 ML VIAL/CARP IV PRN (15:22)
[2018-10-03] MEDS ORDERED: METOCLOPRAMIDE HCL INJ 5 MG/ML 2 ML VIAL IV PRN (15:22)
[2018-10-03] MEDS ORDERED: SODIUM CHLORIDE 0.9% 1000ML 1,000 ML IV SCH (15:30)
--- NOTE | 2018-10-03 15:44 | XRay Report ---
XR knee RT 2V routine CLINICAL HISTORY: Surgical Post Op COMPARISON: None. DISCUSSION: Anatomic alignment post right knee total arthroplasty/revision. Expected soft tissue post operative change. IMPRESSION: Anatomic alignment post total right knee arthroplasty/revision. The above report was generated using voice recognition software. It may contain grammatical, syntax or spelling errors. Electronically signed by: Hayden Valle M.D. 10/03/2018 3:42 PM
--- NOTE | 2018-10-03 15:46 | Anesthesiology Progress Note ---
Date of Service October 03, 2018 Anesthesia Post Procedure Vital Signs Vital Signs: Temp Pulse Resp BP Pulse Ox 10/03/18 12:05 36.6 C 97 H 20 152/77 H 96 Notes Mental Status: alert / awake / arousable Patient Amnestic to Procedure: Yes Nausea / Vomiting: adequately controlled Pain: adequately controlled Airway Patency, RR, SpO2: stable & adequate BP & HR: stable & adequate Hydration State: stable & adequate Neuraxial Anesthesia: was administered and sensory block is resolving Anesthetic Complications: no major complications apparent and Pt Satisfied with anesthetic care
[2018-10-03] MEDS ORDERED: PHARMACY GLYCEMIC MGMT CONSULT SCH (16:19)
[2018-10-03] MEDS ORDERED: NovoLIN-N (NPH) PER UNIT CHARGE SQ ONE (16:30)
--- NOTE | 2018-10-03 16:36 | Pharmacy Report ---
Glycemic Control Consultation - Date of Service October 03, 2018 - Scope Scope: Glycemic Pharmacist consulted by Dr Taylor on 10/03/18 for glycemic control and to write orders per [facility] inpatient glycemic control protocol - Objective Weight: 83.597 kg Accuchecks BSG (last 24hrs): 10/03/18 10/03/18 12:00 15:24 POC Glucose 143 H 147 H HbA1c: Hemoglobin A1c 6.9 % (4.5-5.6) H 09/04/18 13:57 - Recent Pertinent Medications Outpatient Anti-diabetic Regimen: * Glimepiride 4mg PO Daily * Metformin 1g PO BID * A1c = 6.9 % 09/04/18 Risk Factors for Insulin Resistance: * Steroids: Dexamethasone 8mg PO x1 preop * Recent Surgery: s/p Right TKA * Diet: Regular - Assessment & Plan Assessment & Plan: ASSESSMENT: * 77 year old type 2 diabetic, s/p Right TKA, known to pharmacy glycemic service from November of last year * Pt is maintained on oral antidiabetic agents as an outpatient * Oral agents are not recommended for inpatient use d/t drug interactions, changing PO intake, and difficulty titrating for acute hyper/hypoglycemia. ADA recommends re-initiating outpatient oral agents 1-2 days prior to discharge if/ when appropriate if they were held on admission. * Will hold oral agents for admission and utilize SQ basal bolus insulin regimen which is the recommended regimen for inpatient glycemic control. * Will initiate weight based insulin dosing for insulin beth patient and titrate based on BSG trends. * Will give NPH to cover steroids received preop * ADA & AACE recommend a goal blood sugar range 140-180 mg/dl for the majority of critically ill & non-critically ill patients. However, more stringent targets may be selected in individual cases. Will utilize more stringent goal of 110-140mg/dl based on patient age & comorbidities. Additionally, tighter glycemic control is warranted to facilitate wound/infection healing. PLAN FOR INPATIENT GLYCEMIC CONTROL: * Holding outpatient oral diabetes medications * Basal insulin * NPH 40 units SQ x 1 dose now * Patient may require a reduced additional dose tomorrow morning * Bolus insulin * NovoLog per scale ACHS or Q6hrs while NPO and overnight at 0000 and 0400 * Goal Range: Low 110 mg/dL - High 140 mg/dL * Correction Factor: 18 mg/dL/unit * Nutritional / Prandial insulin per carb ratio of 1 unit per 6 grams CHO consumed * Please note that the plan above was derived based on current level of insulin resistance and hospital stress. These recommendations are appropriate for inpatient admission only. Plan of care upon discharge will need to be reassessed to avoid potential outpatient hypo/hyperglycemia. Thank you.
[2018-10-03] MEDS: INSULIN ASPART 100 UNITS/ML 3 ML PEN SC SCH ×2 (17:54→20:36)
--- NOTE | 2018-10-03 18:13 | Consultation ---
Date of Consultation October 03, 2018 Assessment & Plan (1) Osteoarthritis of right knee: (2) Status post total knee replacement, right: S/P R TKA POD #[address] Pina EBL 20ml Tolerated procedure well -pain/wound/activities as directed by ortho -VTE prophylaxis ASA BID/SCDS -incentive spirometry -monitor H/H for ABL Anemia (3) Diabetes: -A1C 6.9 09/04/18 -glycemic pharmacist consulted, appreciate their recs (4) Hypertension: -blood pressure stable, on lower side -will hold lisinopril and re-evaluate in a.m. -continue IVF per ortho (5) DVT prophylaxis: -ASA BID per ortho Disposition: tbd by primary (requesting rehab) Follow up: PCP Dr. Ellsworth in 1 week upon discharge Patient was seen in collaboration with Dr. Soto, please see addendum Supervising Physician Co-Signing Physician Notes Attending addendum: 77-year-old female status post right knee surgery secondary to degenerative joint disease Continue PT OT pain management as per orthopedic Type 2 diabetes Continue insulin sliding scale basal [facility] Pharm[facility] consult for glycemic management Meliza Soto MD History of Present Illness Reason for Consultation: Post op medical management Requesting Physician: Dr. Pina Attending Physician: Marty Pina MD History of Present Illness This is a 77-year-old white female with significant past medical history of T2 DM, HLD, HTN, osteoporosis, obesity who presents to [facility] for elective right TKA. Patient failed outpatient conservative measures for end-stage right knee OA DJD. She tolerated procedure well. Currently is numb to the right lower extremity and therefore not experiencing any pain. Denies fever, chills, sweats, lightheadedness, dizziness, chest pain, shortness breath, palpitations, nausea, vomiting, diarrhea. She has not voided postoperatively. She did tolerate pudding cup but has not had a full meal. She states "I am ready for breakfast lunch and dinner." Allergies Allergy/AdvReac Type Severity Reaction Status Date / Time Ksorrbi-Uca-Pud Reductase AdvReac Unknown achy Verified 10/03/18 12:06 Inhibitor joints, - hadd a rash with one (? specific) Home Medications Home Medications Medication Instructions Recorded Confirmed Type Tylenol Arthritis - "Off Brand" 1 dose PO UD PRN 09/01/18 10/03/18 History aspirin [Aspir-81] 81 mg PO DAILY 09/01/18 10/03/18 History glimepiride 4 mg PO QAM 09/01/18 10/03/18 History lisinopril 10 mg PO QAM 09/01/18 10/03/18 History metformin 1,000 mg PO BID 09/01/18 10/03/18 History Patient History Family History Father Family history of lung cancer Social History Current Living Situation: Spouse Other Information That Helps Us Care for You: No Feels Safe at Home: Yes Smoking Status: Never smoker Do You Dip or Chew Tobacco: No Hx Alcohol Use: No Hx Substance Use: No Beliefs That Will Affect Care: None Preferred Language: Setswana Communication Ability: Effective Communication Ability Comment: HARD OF 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 Physical Exam 2 Vital Signs (Past 24 Hours): Last Vital Signs Temp 36.4 C L 10/03/18 16:47 Pulse 76 10/03/18 17:25 Resp 16 10/03/18 17:25 BP 96/56 L 10/03/18 17:25 Pulse Ox 94 10/03/18 17:25 Physical Exam: Gen: WD/WN, Elderly, F, NAD, sitting up in bed, pleasant, conversing easily Head: Normocephalic, Atraumatic Eyes: Sclera normal, no conjunctival injection, PERRLA, EOMI ENT: Gross hearing intact, normal pharynx, mucous membranes moist Neck: supple, no adenopathy, No JVD, no bruit, Resp: Clear to auscultation b/l, no wheeze, rales, rhonchi. 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 CXR: IMPRESSION: 1. Cardiomegaly without acute process. 2. Suggestion of cholelithiasis. _ (1) Diabetes Diabetes mellitus complication status: without complication Diabetes mellitus group home insulin use: without maintenance of way superintendent use Diabetes mellitus type: type 2 Qualified Code(s): E11.9 - Type 2 diabetes mellitus without complications (2) Osteoarthritis of right knee Osteoarthritis type: primary Qualified Code(s): M17.11 - Unilateral primary osteoarthritis, right knee (3) Hypertension Hypertension type: essential hypertension Qualified Code(s): I10 - Essential (primary) hypertension
[2018-10-03] MEDS: CeleBREX 200 MG CAP PO SCH (20:07)
[2018-10-03] MEDS: CEFAZOLIN 2000MG 2,000 MG/15 ML SYR IV SCH (20:07)
[2018-10-03] MEDS: DOCUSATE SODIUM 100 MG CAP PO SCH (20:08)
[2018-10-03] MEDS: ASPIRIN 81 MG ECTAB PO SCH (20:08)
[2018-10-03] MEDS: SENNA 8.6 MG TAB PO SCH (20:08)
[2018-10-03] MEDS: ACETAMINOPHEN 500 MG TAB PO SCH (22:45)
[2018-10-04] MEDS: INSULIN ASPART 100 UNITS/ML 3 ML PEN SC SCH ×6 (00:45→20:50)
[2018-10-04] MEDS: CEFAZOLIN 2000MG 2,000 MG/15 ML SYR IV SCH (04:09)
[2018-10-04] MEDS: ACETAMINOPHEN 500 MG TAB PO SCH ×3 (05:56→21:37)
[2018-10-04 07:10] LABS: Hematocrit (blood only) 36.2 % (37-47); Hemoglobin 12.1 g/dL (12.0-16.0); Mean Corpuscular Hgb Conc 33.4 g/dL (32-36); Mean Corpuscular Volume 92.3 fL (80-100); Mean Platelet Volume 9.7 fL (7.4-10.4); Platelet Count 143 K/uL (130-400); RDW Coefficient of Variation 13.3 % (11.5-14.5); RDW Standard Deviation 44.5 fL (36.4-46.3); Red Blood Count 3.92 M/uL (4.2-5.4); White Blood Count 8.92 K/uL (4.8-10.8)
[2018-10-04 07:47] LABS: BUN Creatinine Ratio 20.7 (10-20); Calcium 9.1 mg/dl (8.5-10.1); Creatinine Clr Calc Pharmacy 40.7 ml/min; Est GFR (African American) 55.6
[2018-10-04] MEDS ORDERED: PNEUMOCOCCAL ADMINISTRATION CHARGE ONE (08:00)
[2018-10-04] MEDS ORDERED: PNEUMOCOCCAL POLYSACCHARIDES 25 MCG/0.5 ML VIAL/SYR IM ONE (08:00)
--- NOTE | 2018-10-04 08:38 | Orthopedic Progress Note ---
Date of Service October 04, 2018 Assessment & Plan (1) Status post total knee replacement, right: POD #1, Right TKA PT/ OT DVT proph- ASA D/C planning- [place] As per medicine. Subjective POD #1, Doing well, denies sob, cp, n/v, pain controlled well. Physical Exam 2 Vital Signs (Past 24 Hours): Last Vital Signs Temp 36.6 C 10/04/18 07:13 Pulse 70 10/04/18 07:13 Resp 16 10/04/18 07:13 BP 95/56 L 10/04/18 07:13 Pulse Ox 94 10/04/18 07:13 Physical Exam: Right knee dressings c/d/i, no drainage, no calf tenderness, toes and ankle mobile, A&Ox3.
[2018-10-04] MEDS: DOCUSATE SODIUM 100 MG CAP PO SCH ×2 (08:42→20:46)
[2018-10-04] MEDS: ASPIRIN 81 MG ECTAB PO SCH ×2 (08:42→20:46)
[2018-10-04] MEDS: CeleBREX 200 MG CAP PO SCH ×2 (08:42→20:47)
[2018-10-04] MEDS: MULTIVITAMIN TAB PO SCH (08:43)
[2018-10-04] MEDS: LISINOPRIL 10 MG TAB PO SCH (08:43)
[2018-10-04] MEDS: OXYCODONE HCL IR 5 MG TAB (IMMEDIATE RELEASE) PO PRN ×2 (08:48→20:45)
--- NOTE | 2018-10-04 08:54 | Anesthesiology Progress Note ---
Date of Service October 04, 2018 Anesthesia Post Procedure Vital Signs Vital Signs: Temp Pulse Pulse Resp BP BP BP 10/04/18 07:13 36.6 C 70 16 95/56 L 10/04/18 04:18 36.5 C 66 16 96/57 L 10/03/18 23:22 36.5 C 66 17 100/60 10/03/18 19:48 36.4 C L 75 18 122/65 10/03/18 18:19 36.6 C 87 18 90/52 L 10/03/18 17:25 76 16 96/56 L 10/03/18 16:47 36.4 C L 82 18 102/58 L 10/03/18 16:15 36.9 C 80 18 113/57 L 10/03/18 15:57 36.9 C 75 18 106/54 L 10/03/18 15:50 71 14 113/55 L 10/03/18 15:45 79 24 110/58 L 10/03/18 15:40 72 15 121/59 L 10/03/18 15:35 77 16 97/62 L 10/03/18 15:30 71 20 114/55 L 10/03/18 15:25 69 16 125/55 L 10/03/18 15:21 37.1 C 77 72 21 113/64 113/64 10/03/18 15:20 10/03/18 12:05 36.6 C 97 H 20 152/77 H Pulse Ox 10/04/18 07:13 94 10/04/18 04:18 95 10/03/18 23:22 93 10/03/18 19:48 94 10/03/18 18:19 95 10/03/18 17:25 94 10/03/18 16:47 94 10/03/18 16:15 97 10/03/18 15:57 96 10/03/18 15:50 94 10/03/18 15:45 95 10/03/18 15:40 97 10/03/18 15:35 98 10/03/18 15:30 97 10/03/18 15:25 97 10/03/18 15:21 98 10/03/18 15:20 100 10/03/18 12:05 96 Notes Mental Status: alert / awake / arousable Patient Amnestic to Procedure: Yes Nausea / Vomiting: adequately controlled Pain: adequately controlled Airway Patency, RR, SpO2: stable & adequate BP & HR: stable & adequate Neuraxial Anesthesia: was administered and sensory block is resolving Anesthetic Complications: no major complications apparent
[2018-10-04] MEDS ORDERED: NovoLIN-N (NPH) PER UNIT CHARGE SQ ONE (09:00)
--- NOTE | 2018-10-04 14:02 | Pharmacy Report ---
Pharmacy Glycemic Short Note 2 - Date of Service October 04, 2018 - Glycemic Short BSG Results (Last 24 hours): 10/03/18 10/03/18 10/03/18 15:24 17:04 20:33 Glucose POC Glucose 147 H 193 H 296 H 10/03/18 10/04/18 10/04/18 23:57 04:07 06:49 Glucose 172 H POC Glucose 215 H 175 H 10/04/18 10/04/18 08:14 12:05 Glucose POC Glucose 162 H 236 H OUTPATIENT ANTIDIABETIC REGIMEN: * Glimepiride 4mg PO Daily * Metformin 1g PO BID * A1c = 6.9 % 09/04/18 ASSESSMENT: * Na is a 77 year old type 2 diabetic, POD #1 s/p Right TKA * She received 61 units of SQ insulin yesterday * Fasting BSG of 162 mg/dL is above goal. An additional 10 units of NPH was ordered for this morning. * Post prandial BSGs remain elevated. Despite elevation, I will loosen novolog correction factor and carb ratio since steroid effect has worn off. I will base parameters on what patient required during November 2017 admission. PLAN FOR INPATIENT GLYCEMIC CONTROL: * Holding outpatient oral diabetes medications * Basal insulin * NPH 10 units SQ this morning * If dinner BSG is > 200 mg/dL, a second dose of NPH 8 units will be given * Bolus insulin * NovoLog per scale ACHS or Q6hrs while NPO * Goal Range: Low 110 mg/dL - High 140 mg/dL * Correction Factor: 20 mg/dL/unit * Nutritional / Prandial insulin per carb ratio of 1 unit per 6 grams CHO consumed PLAN FOR DISCHARGE: * A1c near goal - ok to resume outpatient regimen on discharge
[2018-10-04] MEDS ORDERED: NovoLIN-N (NPH) PER UNIT CHARGE SQ SCH (17:00)
[2018-10-04] MEDS: SENNA 8.6 MG TAB PO SCH (20:47)
[2018-10-05] MEDS: OXYCODONE HCL IR 5 MG TAB (IMMEDIATE RELEASE) PO PRN ×3 (03:56→20:10)
[2018-10-05] MEDS: ACETAMINOPHEN 500 MG TAB PO SCH ×3 (05:42→21:56)
[2018-10-05] MEDS: LISINOPRIL 10 MG TAB PO SCH (08:45)
[2018-10-05] MEDS: CeleBREX 200 MG CAP PO SCH ×2 (08:46→20:05)
[2018-10-05] MEDS: DOCUSATE SODIUM 100 MG CAP PO SCH ×2 (08:47→20:04)
[2018-10-05] MEDS: ASPIRIN 81 MG ECTAB PO SCH ×2 (08:47→20:05)
[2018-10-05] MEDS: MULTIVITAMIN TAB PO SCH (08:47)
[2018-10-05] MEDS: METFORMIN HCL 500 MG TAB PO SCH ×2 (08:48→18:08)
[2018-10-05] MEDS: INSULIN ASPART 100 UNITS/ML 3 ML PEN SC SCH ×4 (08:50→20:04)
--- NOTE | 2018-10-05 09:15 | Orthopedic Progress Note ---
Date of Service October 05, 2018 Assessment & Plan (1) Status post total knee replacement, right: POD #2, Right TKA PT/ OT DVT proph- ASA D/C planning- [place] vs [facility] Saturday due to insurance. As per medicine. Subjective POD #2, Doing well, denies sob, cp, n/v, pain controlled well. Physical Exam 2 Vital Signs (Past 24 Hours): Last Vital Signs Temp 36.7 C 10/05/18 07:17 Pulse 74 10/05/18 07:17 Resp 16 10/05/18 07:17 BP 112/69 10/05/18 07:17 Pulse Ox 94 10/05/18 07:17 Physical Exam: Right knee wound vac c/d/i, no drainage, no erythema, no calf tenderness, toes and ankle mobile, A&Ox3.
[2018-10-05] MEDS ORDERED: NovoLIN-N (NPH) PER UNIT CHARGE SQ ONE (12:30)
--- NOTE | 2018-10-05 14:20 | Pharmacy Report ---
Pharmacy Glycemic Short Note 2 - Date of Service October 05, 2018 - Glycemic Short BSG Results (Last 24 hours): 10/04/18 10/04/18 10/05/18 17:21 20:42 08:20 POC Glucose 153 H 190 H 132 H 10/05/18 12:09 POC Glucose 210 H OUTPATIENT ANTIDIABETIC REGIMEN: * Glimepiride 4mg PO Daily * Metformin 1g PO BID * A1c = 6.9 % 09/04/18 ASSESSMENT: * Na is a 77 year old type 2 diabetic, POD #2 s/p Right TKA * She received 56 units of SQ insulin yesterday * Fasting BSG of 132 mg/dL is at goal. I did not anticipate Na needing additional basal insulin today based on data from November 2017 admission; she required 0 units of insulin on POD #2 during [place] admission and today she has already received 24 units. I will give a one time dose of NPH with lunch. * Post prandial BSGs remain elevated despite Novolog dosed on weight/stress 3. Metformin was resumed this AM, therefore I anticipate improvement over the next 24 hours. PLAN FOR INPATIENT GLYCEMIC CONTROL: * Resume metformin 1000 mg PO BID with meals * Basal insulin * NPH 8 units SQ with lunch x 1 * Bolus insulin * NovoLog per scale ACHS or Q6hrs while NPO * Goal Range: Low 110 mg/dL - High 140 mg/dL * Correction Factor: 20 mg/dL/unit * Nutritional / Prandial insulin per carb ratio of 1 unit per 6 grams CHO consumed PLAN FOR DISCHARGE: * A1c near goal - ok to resume outpatient regimen on discharge
[2018-10-05] MEDS: SENNA 8.6 MG TAB PO SCH (20:05)
[2018-10-06] MEDS: ACETAMINOPHEN 500 MG TAB PO SCH ×2 (05:46→13:28)
--- NOTE | 2018-10-06 07:02 | Orthopedic Progress Note ---
Date of Service October 06, 2018 Assessment & Plan (1) Status post total knee replacement, right: POD #3, Right TKA PT/ OT DVT proph- ASA D/C planning- [place] vs [facility] likely today pending auth and placement As per medicine. Subjective POD #3, Doing well, denies sob, cp, n/v, pain controlled well. Physical Exam 2 Vital Signs (Past 24 Hours): Last Vital Signs Temp 36.7 C 10/05/18 23:23 Pulse 89 10/05/18 23:23 Resp 16 10/05/18 23:23 BP 114/62 10/05/18 23:23 Pulse Ox 92 10/05/18 23:23 Physical Exam: Dressing c/d/i, no calf tenderness, sensation and n/v status intact, toes mobile.
[2018-10-06] MEDS: METFORMIN HCL 500 MG TAB PO SCH ×2 (08:22→17:22)
[2018-10-06] MEDS: ASPIRIN 81 MG ECTAB PO SCH (08:22)
[2018-10-06] MEDS: MULTIVITAMIN TAB PO SCH (08:22)
[2018-10-06] MEDS: CeleBREX 200 MG CAP PO SCH (08:22)
[2018-10-06] MEDS: LISINOPRIL 10 MG TAB PO SCH (08:22)
[2018-10-06] MEDS: DOCUSATE SODIUM 100 MG CAP PO SCH (08:24)
[2018-10-06] MEDS: INSULIN ASPART 100 UNITS/ML 3 ML PEN SC SCH ×3 (09:00→17:22)
[2018-10-06] MEDS: OXYCODONE HCL IR 5 MG TAB (IMMEDIATE RELEASE) PO PRN (16:15)
--- NOTE | 2018-10-07 07:59 | Discharge Summary ---
Date of Service October 07, 2018 Admission HPI Per Admitting Provider Patient is a 77 year old female who presents with complaints of ongoing and worsening right knee pain. She has had previous left total knee arthroplasty and left knee revision of the femoral component. No changes in health history noted since surgery in November. She has failed conservative measures including cortisone injection, viscosupplementation, and anti-inflammatory medications. She would like to proceed with right total knee arthroplasty. Patient denies headaches, sweats, fevers, chills, double vision, blurred vision, cough, sore throat, dysphagia, chest pain, sob, wheezing, n/v/d/c, tingling, fatigue, urinary symptoms, mood disorders. ROS positive for right knee pain and stiffness. She does have hand numbness as well. Admission Exam Per Admitting Provider Constitutional: well developed and well nourished; no acute distress Eyes: PERRL, conjunctivae normal, anicteric sclerae ENMT: external ear and nose normal, oropharynx normal Neck: trachea midline, no thyromegaly Respiratory: normal respiratory effort, lungs clear to auscultation Cardiovascular: RRR, no murmur, no edema Musculoskeletal: Right knee-Crepitus with ROM, 0-120 degrees of ROM. She is tender over medial joint line. Varus alignment. Stable to valgus and varus stress. Skin: no rashes, warm and dry Neurologic: normal touch/pain/proprioception Psychiatric: A+Ox3, euthymic affect Principal Diagnosis Right knee DJD -DM2, HTN Discharge Exam Constitutional well developed and well nourished; no acute distress Eyes PERRL, conjunctivae normal, anicteric sclerae ENMT external ear and nose normal, oropharynx normal Neck trachea midline, no thyromegaly Respiratory normal respiratory effort, lungs clear to auscultation Cardiovascular RRR, no murmur, no edema Skin no rashes, warm and dry Neurologic normal touch/pain/proprioception Psychiatric A+Ox3, euthymic affect Discharge Data Allergies Allergy/AdvReac Type Severity Reaction Status Date / Time [id number] Reductase AdvReac Unknown achy Verified 10/03/18 12:06 Inhibitor joints, - hadd a rash with one (? specific) Consultations 10/03/18 15:22 Consult Hospitalist Routine 10/03/18 15:23 Consult Case Management - Discharge Planning Routine Procedures Performed Operation Date: 10/03/18 13:10 Actual Procedures p Right Total Knee Arthroplasty(Right) - Marty Pina MD Ordered Studies 10/03/18 05:00 US - OR guided needle placemen Routine Hospital Course (1) Status post total knee replacement, right: Patient presented for same day admission following right total knee arthroplasty on 10/03/18. She tolerated procedure well. Post-operatively, her activity was progressed and well tolerated. Dr. Meliza Soto of [facility] medical service was consulted for medical management during admission. Please refer to daily progress notes and PT notes for complete details. Patient required a 3-midnight stay due to plans to going to a long term facility. After exam on 10/06/18, patient was felt to be stable for discharge to [facility]. Patient will f/u in the office in about 2 weeks for further evaluation including x-rays and incision check, sooner if having any issues or concerns. Lab Results 09/04/18 09/04/18 09/04/18 Range/Units 13:57 13:57 13:57 WBC 6.16 (4.8-10.8) K/uL RBC 4.46 (4.2-5.4) M/uL Hgb 13.5 (12.0-16.0) g/dL Hct 40.7 (37-47) % MCV 91.3 (80-100) fL MCH 30.3 (25-34) pg MCHC 33.2 (32-36) g/dL RDW Std Deviation 44.6 (36.4-46.3) fL RDW Coeff of Lei 13.5 (11.5-14.5) % Plt Count 193 (130-400) K/uL MPV 10.0 (7.4-10.4) fL Immature Gran % (Auto) 0.2 % Neut % (Auto) 51.0 % Lymph % (Auto) 33.1 % Sargent % (Auto) 11.9 % Eos % (Auto) 3.2 % Baso % (Auto) 0.6 % Immature Gran # (Auto) 0.01 (0.00-0.02) K/uL Neut # (Auto) 3.14 (1.4-6.5) K/uL Lymph # (Auto) 2.04 (1.2-3.4) K/uL Sargent # (Auto) 0.73 H (0.11-0.59) K/uL Eos # (Auto) 0.20 (0-0.5) K/uL Baso # (Auto) 0.04 (0-0.2) K/uL PT 10.7 (9.0-12.0) Seconds INR 1.1 (0.9-1.1) APTT 25.6 (21.0-31.0) Seconds PTT Ratio 1.0 Sodium 138 (136-145) mmol/L Potassium 4.0 (3.5-5.1) mmol/L Chloride 108 H (98-107) mmol/L Carbon Dioxide 24 (21-32) mmol/L Anion Gap 6.0 (3-11) BUN 17 (7-18) mg/dl Creatinine 0.75 (0.6-1.2) mg/dl Est Cr Clr Drug Dosing 61.0 ml/min Est GFR ( Amer) 90.4 Est GFR (Non-Af Amer) 78.0 BUN/Creatinine Ratio 23.2 H (10-20) Glucose 63 L (70-99) mg/dl POC Glucose (70-99) Estimat Average Glucose mg/dl Hemoglobin A1c (4.5-5.6) % Calcium 10.1 (8.5-10.1) mg/dl Albumin 3.7 (3.4-5.0) gm/dl Urine Color Urine Appearance (Clear) Urine pH (4.5-7.5) Ur Specific [place] (1.000-1.030) Urine Protein (Negative) Urine Glucose (UA) (Negative) Urine Ketones (Negative) Urine Blood (Negative) Urine Nitrite (Negative) Urine Bilirubin (Negative) Urine Urobilinogen (Negative) Ur Leukocyte Esterase (Negative) Urine WBC (Auto) (0-5) /hpf Urine RBC (Auto) (0-4) /hpf U Hyaline Cast (Auto) (0-5) /lpf U Epithel Cells (Auto) (0-5) /lpf Urine Bacteria (Auto) (Negative) Blood Type Antibody Screen 09/04/18 09/04/18 09/04/18 Range/Units 13:57 13:57 Unknown WBC (4.8-10.8) K/uL RBC (4.2-5.4) M/uL Hgb (12.0-16.0) g/dL Hct (37-47) % MCV (80-100) fL MCH (25-34) pg MCHC (32-36) g/dL RDW Std Deviation (36.4-46.3) fL RDW Coeff of Lei (11.5-14.5) % Plt Count (130-400) K/uL MPV (7.4-10.4) fL Immature Gran % (Auto) % Neut % (Auto) % Lymph % (Auto) % Sargent % (Auto) % Eos % (Auto) % Baso % (Auto) % Immature Gran # (Auto) (0.00-0.02) K/uL Neut # (Auto) (1.4-6.5) K/uL Lymph # (Auto) (1.2-3.4) K/uL Sargent # (Auto) (0.11-0.59) K/uL Eos # (Auto) (0-0.5) K/uL Baso # (Auto) (0-0.2) K/uL PT (9.0-12.0) Seconds INR (0.9-1.1) APTT (21.0-31.0) Seconds PTT Ratio Sodium (136-145) mmol/L Potassium (3.5-5.1) mmol/L Chloride (98-107) mmol/L Carbon Dioxide (21-32) mmol/L Anion Gap (3-11) BUN (7-18) mg/dl Creatinine (0.6-1.2) mg/dl Est Cr Clr Drug Dosing ml/min Est GFR ( Amer) Est GFR (Non-Af Amer) BUN/Creatinine Ratio (10-20) Glucose (70-99) mg/dl POC Glucose (70-99) Estimat Average Glucose 151 mg/dl Hemoglobin A1c 6.9 H (4.5-5.6) % Calcium (8.5-10.1) mg/dl Albumin (3.4-5.0) gm/dl Urine Color Yellow Urine Appearance Clear (Clear) Urine pH 5.0 (4.5-7.5) Ur Specific [place] 1.023 (1.000-1.030) Urine Protein Negative (Negative) Urine Glucose (UA) 3+ H (Negative) Urine Ketones Negative (Negative) Urine Blood Negative (Negative) Urine Nitrite Negative (Negative) Urine Bilirubin Negative (Negative) Urine Urobilinogen Negative (Negative) Ur Leukocyte Esterase 1+ H (Negative) Urine WBC (Auto) 1-5 (0-5) /hpf Urine RBC (Auto) 0-4 (0-4) /hpf U Hyaline Cast (Auto) 1-5 (0-5) /lpf U Epithel Cells (Auto) >30 H (0-5) /lpf Urine Bacteria (Auto) Negative (Negative) Blood Type A Positive Antibody Screen NEGATIVE 10/03/18 10/03/18 10/03/18 Range/Units 12:00 15:24 17:04 WBC (4.8-10.8) K/uL RBC (4.2-5.4) M/uL Hgb (12.0-16.0) g/dL Hct (37-47) % MCV (80-100) fL MCH (25-34) pg MCHC (32-36) g/dL RDW Std Deviation (36.4-46.3) fL RDW Coeff of Lei (11.5-14.5) % Plt Count (130-400) K/uL MPV (7.4-10.4) fL Immature Gran % (Auto) % Neut % (Auto) % Lymph % (Auto) % Sargent % (Auto) % Eos % (Auto) % Baso % (Auto) % Immature Gran # (Auto) (0.00-0.02) K/uL Neut # (Auto) (1.4-6.5) K/uL Lymph # (Auto) (1.2-3.4) K/uL Sargent # (Auto) (0.11-0.59) K/uL Eos # (Auto) (0-0.5) K/uL Baso # (Auto) (0-0.2) K/uL PT (9.0-12.0) Seconds INR (0.9-1.1) APTT (21.0-31.0) Seconds PTT Ratio Sodium (136-145) mmol/L Potassium (3.5-5.1) mmol/L Chloride (98-107) mmol/L Carbon Dioxide (21-32) mmol/L Anion Gap (3-11) BUN (7-18) mg/dl Creatinine (0.6-1.2) mg/dl Est Cr Clr Drug Dosing ml/min Est GFR ( Amer) Est GFR (Non-Af Amer) BUN/Creatinine Ratio (10-20) Glucose (70-99) mg/dl POC Glucose 143 H 147 H 193 H (70-99) Estimat Average Glucose mg/dl Hemoglobin A1c (4.5-5.6) % Calcium (8.5-10.1) mg/dl Albumin (3.4-5.0) gm/dl Urine Color Urine Appearance (Clear) Urine pH (4.5-7.5) Ur Specific [place] (1.000-1.030) Urine Protein (Negative) Urine Glucose (UA) (Negative) Urine Ketones (Negative) Urine Blood (Negative) Urine Nitrite (Negative) Urine Bilirubin (Negative) Urine Urobilinogen (Negative) Ur Leukocyte Esterase (Negative) Urine WBC (Auto) (0-5) /hpf Urine RBC (Auto) (0-4) /hpf U Hyaline Cast (Auto) (0-5) /lpf U Epithel Cells (Auto) (0-5) /lpf Urine Bacteria (Auto) (Negative) Blood Type Antibody Screen 10/03/18 10/03/18 10/04/18 Range/Units 20:33 23:57 04:07 WBC (4.8-10.8) K/uL RBC (4.2-5.4) M/uL Hgb (12.0-16.0) g/dL Hct (37-47) % MCV (80-100) fL MCH (25-34) pg MCHC (32-36) g/dL RDW Std Deviation (36.4-46.3) fL RDW Coeff of Lei (11.5-14.5) % Plt Count (130-400) K/uL MPV (7.4-10.4) fL Immature Gran % (Auto) % Neut % (Auto) % Lymph % (Auto) % Sargent % (Auto) % Eos % (Auto) % Baso % (Auto) % Immature Gran # (Auto) (0.00-0.02) K/uL Neut # (Auto) (1.4-6.5) K/uL Lymph # (Auto) (1.2-3.4) K/uL Sargent # (Auto) (0.11-0.59) K/uL Eos # (Auto) (0-0.5) K/uL Baso # (Auto) (0-0.2) K/uL PT (9.0-12.0) Seconds INR (0.9-1.1) APTT (21.0-31.0) Seconds PTT Ratio Sodium (136-145) mmol/L Potassium (3.5-5.1) mmol/L Chloride (98-107) mmol/L Carbon Dioxide (21-32) mmol/L Anion Gap (3-11) BUN (7-18) mg/dl Creatinine (0.6-1.2) mg/dl Est Cr Clr Drug Dosing ml/min Est GFR ( Amer) Est GFR (Non-Af Amer) BUN/Creatinine Ratio (10-20) Glucose (70-99) mg/dl POC Glucose 296 H 215 H 175 H (70-99) Estimat Average Glucose mg/dl Hemoglobin A1c (4.5-5.6) % Calcium (8.5-10.1) mg/dl Albumin (3.4-5.0) gm/dl Urine Color Urine Appearance (Clear) Urine pH (4.5-7.5) Ur Specific [place] (1.000-1.030) Urine Protein (Negative) Urine Glucose (UA) (Negative) Urine Ketones (Negative) Urine Blood (Negative) Urine Nitrite (Negative) Urine Bilirubin (Negative) Urine Urobilinogen (Negative) Ur Leukocyte Esterase (Negative) Urine WBC (Auto) (0-5) /hpf Urine RBC (Auto) (0-4) /hpf U Hyaline Cast (Auto) (0-5) /lpf U Epithel Cells (Auto) (0-5) /lpf Urine Bacteria (Auto) (Negative) Blood Type Antibody Screen 10/04/18 10/04/18 10/04/18 Range/Units 06:49 06:49 08:14 WBC 8.92 (4.8-10.8) K/uL RBC 3.92 L (4.2-5.4) M/uL Hgb 12.1 (12.0-16.0) g/dL Hct 36.2 L (37-47) % MCV 92.3 (80-100) fL MCH 30.9 (25-34) pg MCHC 33.4 (32-36) g/dL RDW Std Deviation 44.5 (36.4-46.3) fL RDW Coeff of Lei 13.3 (11.5-14.5) % Plt Count 143 (130-400) K/uL MPV 9.7 (7.4-10.4) fL Immature Gran % (Auto) % Neut % (Auto) % Lymph % (Auto) % Sargent % (Auto) % Eos % (Auto) % Baso % (Auto) % Immature Gran # (Auto) (0.00-0.02) K/uL Neut # (Auto) (1.4-6.5) K/uL Lymph # (Auto) (1.2-3.4) K/uL Sargent # (Auto) (0.11-0.59) K/uL Eos # (Auto) (0-0.5) K/uL Baso # (Auto) (0-0.2) K/uL PT (9.0-12.0) Seconds INR (0.9-1.1) APTT (21.0-31.0) Seconds PTT Ratio Sodium 135 L (136-145) mmol/L Potassium 4.0 (3.5-5.1) mmol/L Chloride 103 (98-107) mmol/L Carbon Dioxide 24 (21-32) mmol/L Anion Gap 8.0 (3-11) BUN 23 H (7-18) mg/dl Creatinine 1.12 (0.6-1.2) mg/dl Est Cr Clr Drug Dosing 40.7 ml/min Est GFR ( Amer) 55.6 Est GFR (Non-Af Amer) 48.0 BUN/Creatinine Ratio 20.7 H (10-20) Glucose 172 H (70-99) mg/dl POC Glucose 162 H (70-99) Estimat Average Glucose mg/dl Hemoglobin A1c (4.5-5.6) % Calcium 9.1 (8.5-10.1) mg/dl Albumin (3.4-5.0) gm/dl Urine Color Urine Appearance (Clear) Urine pH (4.5-7.5) Ur Specific [place] (1.000-1.030) Urine Protein (Negative) Urine Glucose (UA) (Negative) Urine Ketones (Negative) Urine Blood (Negative) Urine Nitrite (Negative) Urine Bilirubin (Negative) Urine Urobilinogen (Negative) Ur Leukocyte Esterase (Negative) Urine WBC (Auto) (0-5) /hpf Urine RBC (Auto) (0-4) /hpf U Hyaline Cast (Auto) (0-5) /lpf U Epithel Cells (Auto) (0-5) /lpf Urine Bacteria (Auto) (Negative) Blood Type Antibody Screen 10/04/18 10/04/18 10/04/18 Range/Units 12:05 17:21 20:42 WBC (4.8-10.8) K/uL RBC (4.2-5.4) M/uL Hgb (12.0-16.0) g/dL Hct (37-47) % MCV (80-100) fL MCH (25-34) pg MCHC (32-36) g/dL RDW Std Deviation (36.4-46.3) fL RDW Coeff of Lei (11.5-14.5) % Plt Count (130-400) K/uL MPV (7.4-10.4) fL Immature Gran % (Auto) % Neut % (Auto) % Lymph % (Auto) % Sargent % (Auto) % Eos % (Auto) % Baso % (Auto) % Immature Gran # (Auto) (0.00-0.02) K/uL Neut # (Auto) (1.4-6.5) K/uL Lymph # (Auto) (1.2-3.4) K/uL Sargent # (Auto) (0.11-0.59) K/uL Eos # (Auto) (0-0.5) K/uL Baso # (Auto) (0-0.2) K/uL PT (9.0-12.0) Seconds INR (0.9-1.1) APTT (21.0-31.0) Seconds PTT Ratio Sodium (136-145) mmol/L Potassium (3.5-5.1) mmol/L Chloride (98-107) mmol/L Carbon Dioxide (21-32) mmol/L Anion Gap (3-11) BUN (7-18) mg/dl Creatinine (0.6-1.2) mg/dl Est Cr Clr Drug Dosing ml/min Est GFR ( Amer) Est GFR (Non-Af Amer) BUN/Creatinine Ratio (10-20) Glucose (70-99) mg/dl POC Glucose 236 H 153 H 190 H (70-99) Estimat Average Glucose mg/dl Hemoglobin A1c (4.5-5.6) % Calcium (8.5-10.1) mg/dl Albumin (3.4-5.0) gm/dl Urine Color Urine Appearance (Clear) Urine pH (4.5-7.5) Ur Specific [place] (1.000-1.030) Urine Protein (Negative) Urine Glucose (UA) (Negative) Urine Ketones (Negative) Urine Blood (Negative) Urine Nitrite (Negative) Urine Bilirubin (Negative) Urine Urobilinogen (Negative) Ur Leukocyte Esterase (Negative) Urine WBC (Auto) (0-5) /hpf Urine RBC (Auto) (0-4) /hpf U Hyaline Cast (Auto) (0-5) /lpf U Epithel Cells (Auto) (0-5) /lpf Urine Bacteria (Auto) (Negative) Blood Type Antibody Screen 10/05/18 10/05/18 10/05/18 Range/Units 08:20 12:09 17:18 WBC (4.8-10.8) K/uL RBC (4.2-5.4) M/uL Hgb (12.0-16.0) g/dL Hct (37-47) % MCV (80-100) fL MCH (25-34) pg MCHC (32-36) g/dL RDW Std Deviation (36.4-46.3) fL RDW Coeff of Lei (11.5-14.5) % Plt Count (130-400) K/uL MPV (7.4-10.4) fL Immature Gran % (Auto) % Neut % (Auto) % Lymph % (Auto) % [place] % (Auto) % Eos % (Auto) % Baso % (Auto) % Immature Gran # (Auto) (0.00-0.02) K/uL Neut # (Auto) (1.4-6.5) K/uL Lymph # (Auto) (1.2-3.4) K/uL Sargent # (Auto) (0.11-0.59) K/uL Eos # (Auto) (0-0.5) K/uL Baso # (Auto) (0-0.2) K/uL PT (9.0-12.0) Seconds INR (0.9-1.1) APTT (21.0-31.0) Seconds PTT Ratio Sodium (136-145) mmol/L Potassium (3.5-5.1) mmol/L Chloride (98-107) mmol/L Carbon Dioxide (21-32) mmol/L Anion Gap (3-11) BUN (7-18) mg/dl Creatinine (0.6-1.2) mg/dl Est Cr Clr Drug Dosing ml/min Est GFR ( Amer) Est GFR (Non-Af Amer) BUN/Creatinine Ratio (10-20) Glucose (70-99) mg/dl POC Glucose 132 H 210 H 158 H (70-99) Estimat Average Glucose mg/dl Hemoglobin A1c (4.5-5.6) % Calcium (8.5-10.1) mg/dl Albumin (3.4-5.0) gm/dl Urine Color Urine Appearance (Clear) Urine pH (4.5-7.5) Ur Specific [place] (1.000-1.030) Urine Protein (Negative) Urine Glucose (UA) (Negative) Urine Ketones (Negative) Urine Blood (Negative) Urine Nitrite (Negative) Urine Bilirubin (Negative) Urine Urobilinogen (Negative) Ur Leukocyte Esterase (Negative) Urine WBC (Auto) (0-5) /hpf Urine RBC (Auto) (0-4) /hpf U Hyaline Cast (Auto) (0-5) /lpf U Epithel Cells (Auto) (0-5) /lpf Urine Bacteria (Auto) (Negative) Blood Type Antibody Screen 10/05/18 10/06/18 10/06/18 Range/Units 20:01 07:50 12:05 WBC (4.8-10.8) K/uL RBC (4.2-5.4) M/uL Hgb (12.0-16.0) g/dL Hct (37-47) % MCV (80-100) fL MCH (25-34) pg MCHC (32-36) g/dL RDW Std Deviation (36.4-46.3) fL RDW Coeff of Lei (11.5-14.5) % Plt Count (130-400) K/uL MPV (7.4-10.4) fL Immature Gran % (Auto) % Neut % (Auto) % Lymph % (Auto) % Sargent % (Auto) % Eos % (Auto) % Baso % (Auto) % Immature Gran # (Auto) (0.00-0.02) K/uL Neut # (Auto) (1.4-6.5) K/uL Lymph # (Auto) (1.2-3.4) K/uL S[place]ent # (Auto) (0.11-0.59) K/uL Eos # (Auto) (0-0.5) K/uL Baso # (Auto) (0-0.2) K/uL PT (9.0-12.0) Seconds INR (0.9-1.1) APTT (21.0-31.0) Seconds PTT Ratio Sodium (136-145) mmol/L Potassium (3.5-5.1) mmol/L Chloride (98-107) mmol/L Carbon Dioxide (21-32) mmol/L Anion Gap (3-11) BUN (7-18) mg/dl Creatinine (0.6-1.2) mg/dl Est Cr Clr Drug Dosing ml/min Est GFR ( Amer) Est GFR (Non-Af Amer) BUN/Creatinine Ratio (10-20) Glucose (70-99) mg/dl POC Glucose 226 H 157 H 146 H (70-99) Estimat Average Glucose mg/dl Hemoglobin A1c (4.5-5.6) % Calcium (8.5-10.1) mg/dl Albumin (3.4-5.0) gm/dl Urine Color Urine Appearance (Clear) Urine pH (4.5-7.5) Ur Specific [place] (1.000-1.030) Urine Protein (Negative) Urine Glucose (UA) (Negative) Urine Ketones (Negative) Urine Blood (Negative) Urine Nitrite (Negative) Urine Bilirubin (Negative) Urine Urobilinogen (Negative) Ur Leukocyte Esterase (Negative) Urine WBC (Auto) (0-5) /hpf Urine RBC (Auto) (0-4) /hpf U Hyaline Cast (Auto) (0-5) /lpf U Epithel Cells (Auto) (0-5) /lpf Urine Bacteria (Auto) (Negative) Blood Type Antibody Screen Total Time Total Time Spent Total Time Spent (In Minutes): 20 Discharge Plan Discharge Items Patient Disposition[facility] Reason For Visit: RIGHT KNEE OSTEOARTHRITIS Discharge Diagnosis: Right knee djd Discharge Goals: Decrease discomfort, Improve function and Increase independence Activity: Per 'Additional Instructions' section Non-emergency contact: Surgeon Call non-emergency contact if: your pain is not controlled, your pain is unusual for you, your temperature is above 101.5, your wound has increased redness and your wound has increased drainage Follow-up/Referrals: Ruddy Bryant PA-C [Primary Care Provider] - Diet: Carb Consistent or DM2 Addtl Provider Instructions: ACTIVITY RECOMMENDATIONS: SELF CARE INSTRUCTIONS AFTER TOTAL KNEE REPLACEMENT A. You may need to continue a physical therapy program after discharge from the hospital. There are several options available to you. Your doctor will assist you in selecting the best one for you. 1. An out-patient facility 2 to 3 times a week for therapy or home therapy. 2. Continue working on all exercises taught to you in the hospital. Your goals should be to increase bending of your knee to 90 degrees and beyond and to fully straighten your knee. B. You may progress at your own pace from walking with a walker or crutches to a cane; then to no assistive devices. C. Make walking a part of your daily routine. Be up as much as comfortable with rest periods throughout the day. Rest with leg elevation is very important. Use the ice wrap frequently for the first 3-4 weeks. D. There are no restrictions on activities. You may ride in a car, shop, participate in medical geneticist and all social activities. E. Wear the long elastic stockings (DANISH hose) 20 hours a day for 2 weeks after surgery. They can be removed several times a day for laundering and for a bath. F. You may shower, no tub baths until cleared by your doctor. SPECIAL CARE INSTRUCTIONS: VERY IMPORTANT TO READ AND REVIEW A. There are a few signs you need to watch for after you are home. Call [facility] if you notice any of the followin. Increased severe knee pain. Some pain is expected especially when you exercise. 2. Increased swelling in your leg or knee; pain or swelling of the calf muscle in either lower leg. 3. Any fluid drainage from the incision. 4. Shortness of breath or chest pain. B. Please call [facility] at if you have any concerns or questions about your operation or recovery. The doctor or his nurse will return your call promptly. C. You must take antibiotics before dental work, bladder, bowel or other surgery. Your doctor will provide you with a permanent care to carry describing this precaution. IMPORTANT: * REMEMBER TO TAKE ASPIRIN, 81 MG, TWICE DAILY FOR 4 WEEKS UNLESS OTHERWISE DIRECTED. THIS IS YOUR BLOOD THINNER. * HIGH RISK PATIENTS MAY BE PRESCRIBED A STRONGER BLOOD THINNER. THIS WILL BE PROVIDED AT DISCHARGE. * CALL IF INCREASED PAIN, REDNESS, DRAINAGE OR FEVER GREATER THAT 101. * WEAR DANISH HOSE 20 HOURS PER DAY FOR 2 WEEKS. * YOU MAY HAVE A LARGE BAND-AID LIKE DRESSING (SILVERON). THIS WILL REMAIN ON YOUR INCISION FOR 7 DAYS, THEN CAN BE REMOVED. IF INCISION IS LEAKING THROUGH DRESSING, CALL THE OFFICE . This is a large suction dressing covering your incision. This will help pull any excess drainage from the wound and allow your incision to heal properly. You may shower with this if you can keep the unit outside of the shower. If any bleeding or leakage is noted please call your doctor's office. This will remain on your incision for 7 days and then should be removed. This can be done yourself or by the home nursing staff if applicable. The entire unit is disposable once removed. Once removed, keep incision clean and dry. If redness or drainage is noted, please call your surgeon. FOLLOW UP VISIT: If appointment is not already scheduled: Please call [facility] to make a follow-up appointment for 2 weeks after your surgery at . Prescriptions: New celecoxib [Celebrex] 200 mg Capsule 200 mg PO BID Qty: 60 RF: 0 aspirin [Ecotrin Low Strength] 81 mg Tablet,Delayed Release (Dr/Ec) 81 mg PO BID Qty: 60 RF: 0 acetaminophen [Pain Reliever] 500 mg Tablet 1,000 mg PO Q8 Qty: 60 RF: 0 oxycodone 5 mg Tablet 5 - 10 mg PO .Q4h-6h MDD 6 PRN (Reason: pain) Qty: 30 RF: 0 cefadroxil 500 mg capsule 500 mg PO BID Qty: 28 RF: 1 Continue metformin 1,000 mg Tablet 1,000 mg PO BID RF: 0 lisinopril 10 mg Tablet 10 mg PO QAM RF: 0 glimepiride 4 mg Tablet 4 mg PO QAM RF: 0 Discontinued aspirin [Aspir-81] 81 mg Tablet,Delayed Release (Dr/Ec) 81 mg PO DAILY RF: 0 Tylenol Arthritis - "Off Brand" 1 dose PO UD PRN (Reason: Pain) RF: 0 Stand-Alone Forms: Count Includes [facility] Discharge Orders: Discharge Order (Routine); Ordered 10/06/18 Ordered By: Froylan Taylor Skilled Items Patient informed of condition?: Yes DNR: No Discharge Level of Care: Skilled Communicable Disease: No Discharge Prognosis: Improving Admission Data Admit Date/Time: 10/03/18 15:23 Attending Provider: Marty Pina Admit Provider: Marty Pina Primary Care Provider: Ruddy Bryant Other Providers: Froylan Kevin Ayesha H Service: Surgical Services Other Interventions: Discharge Summary Assessment (RN) Last Done: 10/06/18 09:25 DC Date/Time DO NOT enter until pt leaves facility: 10/06/18 18:53
== END 2018-10-06 18:53 | DRG 470 ==
LOC: ASU 11:25 → 3E 15:23
DX: Z96.652 Presence of left artificial knee joint; Z79.899 Other long term (current) drug therapy; M81.0 Age-related osteoporosis without current pathological fracture; M21.161 Varus deformity, not elsewhere classified, right knee; Z75.1 Person awaiting admission to adequate facility elsewhere; E66.9 Obesity, unspecified; Z79.82 Long term (current) use of aspirin; E11.9 Type 2 diabetes mellitus without complications; M17.11 Unilateral primary osteoarthritis, right knee; Z79.84 Long term (current) use of oral hypoglycemic drugs; Z88.8 Allergy status to other drugs, medicaments and biological substances; I10 Essential (primary) hypertension; Z68.37 Body mass index [BMI] 37.0-37.9, adult